=== PATIENT | female | born 1965 | race Caucasian/White ===

== ENCOUNTER → 2018-04-30 | Outpatient (CLI) | payer OTHER ==
--- NOTE | 2018-04-30 10:44 | CT ---
EXAMINATION TYPE: CT facial bones w con DATE OF EXAM: 04/30/2018 COMPARISON: NONE HISTORY: Osteomyelitis CT DLP: 847 mGycm CONTRAST: 100 mL of Isovue 300 The paranasal sinuses are examined in the axial plane at 2 mm thick sections. Reconstructed images i n the coronal plane were obtained. There is dental amalgam scatter artifact. The maxillary sinuses are clear. The ethmoid air cells are clear. The sphenoid sinuses are clear. The frontal sinuses are clear. The septum is evaluated. There is septal deviation to the right. The ostiomeatal units are patent. There are prior uncinectomies and ethmoidectomies. The maxillary spine is intact. Osseous structures appear intact. No cortical erosion to suggest acute osteomyelitis is evident. No suspicious enhancement is evident. No abscess is identified. IMPRESSIONS: 1. No suspicious osseous erosions to suggest osteomyelitis is identified. 2. Postsurgical changes within the uncinate processes and ethmoid air cells.
== END | disposition home or self-care (01) ==
LOC: RADCTMAIN 07:35
PROVIDERS: ATTEND Family Medicine
DX: M86.9 Osteomyelitis, unspecified (principal); Z98.890 Other specified postprocedural states
CPT/HCPCS: 70487; Q9967

== ENCOUNTER → 2018-05-12 | Outpatient (CLI) | payer OTHER ==
--- NOTE | 2018-05-12 17:27 | NM ---
EXAMINATION TYPE: NM bone 3 phase DATE OF EXAM: 05/12/2018 COMPARISON: CT facial bones 04/30/2018 HISTORY: 53-year-old female osteomyelitis of the sinuses, sinus/cheek bone swelling, molar pulled 14 months ago. Technique: Triple phase bone scintigraphy was performed following the injection of 23.9 mCi Tc 99m MD P. Immediate images and 3.5 hours post injection images acquired. Imaging performed over the head an d neck. FINDINGS: Flow images show no significant hyperemia compared from side to side. Pool images show relatively symmetrical appearance. Delayed images show focal increased uptake along the right maxilla. IMPRESSION: Focal increased uptake only on the delayed images within the right maxilla suggests periodontal disea se. No corresponding increased flow or pool activity here. No convincing findings of osteomyelitis as , generally, increased uptake on all 3 phases would suggest osteomyelitis.
== END | disposition home or self-care (01) ==
LOC: RADNMMAIN 07:13
PROVIDERS: ATTEND Internal Medicine Infectious Disease
DX: R93.7 Abnormal findings on diagnostic imaging of other parts of musculoskeletal system (principal); M86.8X8 Other osteomyelitis, other site
CPT/HCPCS: 78315; A9503

== ENCOUNTER → 2018-09-02 | Outpatient (CLI) | payer OTHER ==
--- NOTE | 2018-09-02 23:33 | CT ---
EXAMINATION TYPE: CT abdomen pelvis w con DATE OF EXAM: 09/02/2018 HISTORY: Umbilical hernia per order. CT DLP: 422.7mGycm Automated Exposure Control for Dose Reduction was Utilized. CONTRAST: CT scan of the abdomen and pelvis is performed without oral but with IV Contrast, patient injected wi th 100 mL of Isovue 300. COMPARISON: None FINDINGS: LUNG BASES: There is central left basilar linear scarring and/or atelectasis axial image 7. LIVER/GB: Cholecystectomy clips are noted. PANCREAS: No significant abnormality is seen. SPLEEN: No significant abnormality is seen. ADRENALS: No significant abnormality is seen. KIDNEYS: No significant abnormality is seen. BOWEL: Evaluation of bowel is slightly suboptimal secondary to lack of enteric contrast. There is no suspicious small or large bowel dilatation. Sutures are suspected along lateral margin of proximal si gmoid colon axial image 68, correlate clinically. Incidental normal-appearing appendix is seen from c ecum in the right pelvis. UTERUS/ADNEXA: Uterus is surgically absent or markedly atrophic. There are some scattered pelvic phle boliths. Neither ovary is identified and suspected surgically absent. LYMPH NODES: No greater than 1cm abdominal or pelvic lymph nodes are appreciated. OSSEOUS STRUCTURES: No significant abnormality is seen. OTHER: There are suspected tiny fat-containing umbilical hernia axial image 42. Superior to this just right of midline by roughly 3.0 cm coronal image 11 there is small hernia defect axial image 33 and 34 with 2.1 cm neck containing fat and tiny mesenteric vessels. Mild to moderate calcified plaque distal abdominal aorta is seen. IMPRESSION: Tiny fat-containing umbilical hernia. There is small ventral wall hernia larger than this superior and to the right of midline as detailed above.
== END | disposition home or self-care (01) ==
LOC: RADCTMAIN 17:35
PROVIDERS: ATTEND Surgery
DX: K42.9 Umbilical hernia without obstruction or gangrene (principal); K43.9 Ventral hernia without obstruction or gangrene
CPT/HCPCS: 74177; Q9967

== ENCOUNTER 2018-09-27 04:53 | Emergency (ER) | payer OTHER ==
[2018-09-27 06:20] LABS: Basophils % (A) 0 %; Eosinophils % (A) 0 %; HGB 13.6 gm/dL (11.4-16.0); Lymphocytes # (A) 1.6 k/uL (1.0-4.8); Lymphocytes % (A) 17 %; MCV 91.3 fL (80.0-100.0); Mean Platelet Volume 7.1; Monocytes # (A) 0.3 k/uL (0-1.0); Monocytes % (A) 3 %; Neutrophils # (A) 6.9 k/uL (1.3-7.7); Neutrophils % (A) 77 %; Platelet Count 316 k/uL (150-450); RBC 4.38 m/uL (3.80-5.40); RDW 12.7 % (11.5-15.5)
[2018-09-27 06:37] LABS: Anion Gap 9 mmol/L; Blood Urea Nitrogen 14 mg/dL (7-17); Calcium 10.3 mg/dL (8.4-10.2); Carbon Dioxide 27 mmol/L (22-30); Chloride 103 mmol/L (98-107); Glucose 126 mg/dL (74-99); Potassium 4.3 mmol/L (3.5-5.1); Sodium 139 mmol/L (137-145)
--- NOTE | 2018-09-27 07:02 | ED ---
ENT HPI - General Chief complaint: Dental/Oral Stated complaint: infection Time Seen by Provider: 09/27/18 05:09 Source: patient Mode of arrival: ambulatory Limitations: no limitations - History of Present Illness Initial comments: This patient is 53-year-old woman who presents with a concern that she is not able to tolerate the antibiotics that she was prescribed for dental infection. The patient states that she had had all of her teeth extracted approximately 3 months ago. She was prescribed amoxicillin, but believes she continued to have dental infection. She states that there have been tenderness to the maxillary area, left greater than right and that this had continued for months. She states that she also had been having some drainage. She did complete multiple courses of amoxicillin without having much relief. She was seen recently by dentist and Layne Winters who prescribed her Cipro and metronidazole, and states that she believes that these were helping but that the medication was causing some stomach upset she could not continue to take them. MD complaint: other Onset/Timin -: month(s) Severity: mild Quality: burning Consistency: constant Improves with: none Worsens with: medication Context- Dental: history of dental caries Associated Symptoms: gum swelling - Related Data Home Medications Medication Instructions Recorded Confirmed Losartan [Cozaar] 50 mg PO DAILY 05/04/18 09/27/18 Atorvastatin [Lipitor] 20 mg PO DAILY 09/27/18 09/27/18 Sertraline [Zoloft] 50 mg PO DAILY 09/27/18 09/27/18 Previous Rx's Medication Instructions Recorded Famotidine [Pepcid] 20 mg PO BID #14 tablet 09/27/18 Ondansetron Odt [Zofran ODT] 4 mg PO Q8HR PRN #10 tab 09/27/18 Allergies Allergy/AdvReac Type Severity Reaction Status Date / Time No Known Allergies Allergy Verified 09/27/18 07:38 Review of Systems ROS Statement: Those systems with pertinent positive or pertinent negative responses have been documented in the HPI. ROS Other: All systems not noted in ROS Statement are negative. Constitutional: Denies: fever, chills Respiratory: Denies: cough, dyspnea Cardiovascular: Denies: chest pain, palpitations Gastrointestinal: Denies: abdominal pain, nausea, vomiting Skin: Denies: rash Neurological: Denies: headache, weakness Past Medical History Past Medical History: Hyperlipidemia, Hypertension History of Any Multi-Drug Resistant Organisms: None Reported Past Surgical History: Cholecystectomy, Hernia Repair, Hysterectomy Additional Past Surgical History / Comment(s): sinus surgery Past Anesthesia/Blood Transfusion Reactions: No Reported Reaction Past Psychological History: Anxiety Smoking Status: Current every day smoker Past Alcohol Use History: None Reported Past Drug Use History: None Reported - Past Family History Mother Family Medical History: Pneumonia Father History Unknown: Yes General Exam Limitations: no limitations General appearance: alert, in no apparent distress Head exam: Present: atraumatic, normocephalic Eye exam: Present: normal appearance. Absent: scleral icterus, conjunctival injection ENT exam: Present: mucous membranes moist, TM's normal bilaterally, normal external ear exam, other (Intervention less) Neck exam: Present: normal inspection, full ROM. Absent: meningismus, lymphadenopathy Respiratory exam: Present: normal lung sounds bilaterally. Absent: respiratory distress, wheezes, rales, rhonchi, stridor Cardiovascular Exam: Present: regular rate, normal rhythm, normal heart sounds. Absent: systolic murmur, diastolic murmur, rubs, gallop Skin exam: Present: warm, dry, intact, normal color. Absent: rash Course Vital Signs 09/27/18 04:57 Temperature 98.0 F Pulse Rate 119 H Respiratory 20 Rate Blood Pressure 152/84 O2 Sat by Pulse 97 Oximetry Medical Decision Making - Lab Data Result diagrams: 09/27/18 05:50 09/27/18 05:50 Lab Results 09/27/18 09/27/18 Range/Units 05:50 05:50 WBC 9.0 (3.8-10.6) k/uL RBC 4.38 (3.80-5.40) m/uL Hgb 13.6 (11.4-16.0) gm/dL Hct 40.0 (34.0-46.0) % MCV 91.3 (80.0-100.0) fL MCH 31.0 (25.0-35.0) pg MCHC 34.0 (31.0-37.0) g/dL RDW 12.7 (11.5-15.5) % Plt Count 316 (150-450) k/uL Neutrophils % 77 % Lymphocytes % 17 % Monocytes % 3 % Eosinophils % 0 % Basophils % 0 % Neutrophils # 6.9 (1.3-7.7) k/uL Lymphocytes # 1.6 (1.0-4.8) k/uL Monocytes # 0.3 (0-1.0) k/uL Eosinophils # 0.0 (0-0.7) k/uL Basophils # 0.0 (0-0.2) k/uL ESR 22 H (0-20) mm/hr Sodium 139 (137-145) mmol/L Potassium 4.3 (3.5-5.1) mmol/L Chloride 103 (98-107) mmol/L Carbon Dioxide 27 (22-30) mmol/L Anion Gap 9 mmol/L BUN 14 (7-17) mg/dL Creatinine 0.69 (0.52-1.04) mg/dL Est GFR (CKD-EPI)AfAm >90 (>60 ml/min/1.73 sqM) Est GFR (CKD-EPI)NonAf >90 (>60 ml/min/1.73 sqM) Glucose 126 H (74-99) mg/dL Calcium 10.3 H (8.4-10.2) mg/dL C-Reactive Protein <5.0 (<10.0) mg/L Disposition Clinical Impression: Gastritis Disposition: HOME SELF-CARE Condition: Good Instructions: Gastritis (ED) Prescriptions: Famotidine [Pepcid] 20 mg PO BID #14 tablet Ondansetron Odt [Zofran ODT] 4 mg PO Q8HR PRN #10 tab PRN Reason: Nausea Is patient prescribed a controlled substance at d/c from ED?: No Referrals: Nonstaff,Physician [Primary Care Provider] - 1-2 days
[2018-09-27 07:12] LABS: C Reactive Protein <5.0 mg/L (<10.0)
[2018-09-27 07:29] LABS: Erythrocyte Sedimentation Rate 22 mm/hr (0-20)
[2018-09-27] MEDS ORDERED: ONDANSETRON ODT 4 MG TAB PO STA (07:47)
[2018-09-27] MEDS ORDERED: FAMOTIDINE 20 MG TAB PO STA (07:47)
[2018-09-27 08:13] VITALS: BP 142/80; PULSE 80; RESP 18; TEMP 97.9
== END 2018-09-27 08:10 | disposition home or self-care (01) ==
LOC: EC 04:53
DX: K29.70 Gastritis, unspecified, without bleeding (principal); E78.5 Hyperlipidemia, unspecified; F41.9 Anxiety disorder, unspecified; F17.200 Nicotine dependence, unspecified, uncomplicated; Z79.899 Other long term (current) drug therapy
CPT/HCPCS: 36415; 80048; 85025; 85652; 86140; 99283

== ENCOUNTER 2018-10-28 13:41 | Emergency (ER) | payer OTHER ==
[2018-10-28 13:55] VITALS: TEMP 98.5
[2018-10-28 15:14] LABS: Basophils % (A) 0 %; Eosinophils # (A) 0.1 k/uL (0-0.7); Eosinophils % (A) 2 %; HGB 12.4 gm/dL (11.4-16.0); Lymphocytes # (A) 2.6 k/uL (1.0-4.8); Lymphocytes % (A) 29 %; MCH 30.1 pg (25.0-35.0); MCHC 32.7 g/dL (31.0-37.0); Mean Platelet Volume 6.9; Monocytes # (A) 0.6 k/uL (0-1.0); Monocytes % (A) 6 %; Neutrophils # (A) 5.4 k/uL (1.3-7.7); Neutrophils % (A) 61 %; Platelet Count 274 k/uL (150-450); RBC 4.13 m/uL (3.80-5.40); RDW 12.7 % (11.5-15.5); WBC 8.9 k/uL (3.8-10.6)
[2018-10-28 15:21] LABS: ALT 25 U/L (9-52); AST 37 U/L (14-36); Albumin 4.3 g/dL (3.5-5.0); Alkaline Phosphatase 42 U/L (38-126); Anion Gap 10 mmol/L; Blood Urea Nitrogen 16 mg/dL (7-17); Calcium 9.8 mg/dL (8.4-10.2); Carbon Dioxide 26 mmol/L (22-30); Chloride 105 mmol/L (98-107); Glucose 102 mg/dL (74-99); Potassium 4.8 mmol/L (3.5-5.1); Sodium 141 mmol/L (137-145); Total Bilirubin 0.8 mg/dL (0.2-1.3); Total Protein 7.5 g/dL (6.3-8.2)
[2018-10-28 15:40] VITALS: BP 118/85; PULSE 82; RESP 18
--- NOTE | 2018-10-28 16:16 | ED ---
General Adult HPI - General Chief complaint: Headache Stated complaint: Facial infection Source: patient, RN notes reviewed, old records reviewed Mode of arrival: ambulatory Limitations: no limitations - History of Present Illness Initial comments: 33-year-old female patient past history including long history of anxiety, tooth removal one year ago, sinus surgery 6 weeks ago secondary to maxillary Sinus drainage. Patient presents in ED with approximately one year long complaints of continued sinus drainage in her mouth which is clear. Waxing and waning headache on her left temporal lobe which she has experienced for greater than a year, comes and goes, no visual symptoms, no changes in vision, does not take anything for pain, no recent falls, no history of bleeding. Patient has been evaluated multiple times for these symptoms. Patient states that she had a sinus CT, brain CT by her primary care provider presently 10 days ago for these symptoms, states that these imaging modalities were normal. Patient was evaluated by the surgeon who performed the surgery Dr. Dalton Kumar out of the [facility] approximately 2 weeks ago. The symptoms, saturation patient at this time. Patient has another follow-up appointment with the surgeon in 5 days. Patient additionally complains of some chills which she experienced is here today, patient is also currently symptoms for longer than one year. Patient denies all other complaints. Systemic: Pt denies fatigue, myalgia, fever, rash. Pt denies weakness, night sweats, weight loss. Neuro: Pt denies visual disturbances, syncope or pre-syncope. HEENT: Pt denies ocular discharge or irritation, otalgia, rhinorrhea, pharyngitis or notable lymphadenopathy. Cardiopulmonary: Pt denies chest pain, SOB, heart palpitations, dyspnea on exertion. Abdominal/GI: Pt denies abdominal pain, n/v/d. : Pt denies dysuria, burning w/ urination, frequency/urgency. Denies new onset urinary or bowel incontinence. MSK: Pt denies myalgia, loss of strength or function in extremities. Neuro: Pt denies new onset weakness, paresthesias. - Related Data Home Medications Medication Instructions Recorded Confirmed Losartan [Cozaar] 50 mg PO DAILY 05/04/18 10/28/18 Atorvastatin [Lipitor] 20 mg PO DAILY 09/27/18 10/28/18 FLUoxetine HCL [PROzac] 40 mg PO DAILY 10/28/18 10/28/18 clonazePAM [KlonoPIN] 0.5 mg PO BID 10/28/18 10/28/18 Allergies Allergy/AdvReac Type Severity Reaction Status Date / Time No Known Allergies Allergy Verified 10/30/18 09:47 Review of Systems ROS Statement: Those systems with pertinent positive or pertinent negative responses have been documented in the HPI. ROS Other: All systems not noted in ROS Statement are negative. Past Medical History Past Medical History: Hyperlipidemia, Hypertension History of Any Multi-Drug Resistant Organisms: None Reported Past Surgical History: Cholecystectomy, Hernia Repair, Hysterectomy Additional Past Surgical History / Comment(s): sinus surgery Past Anesthesia/Blood Transfusion Reactions: No Reported Reaction Past Psychological History: Anxiety Smoking Status: Current every day smoker Past Alcohol Use History: None Reported Past Drug Use History: None Reported - Past Family History Mother Family Medical History: Pneumonia Father History Unknown: Yes General Exam - General Exam Comments Initial Comments: Constitutional: NAD, AOX3, Pt has pleasant affect. HEENT: NC/AT, trachea midline, neck supple, no lymphadenopathy. Posterior pharynx non erythematous, without exudates. External ears appear normal, without discharge. Mucous membranes moist. Eyes PERRLA, EOM intact. There is no scleral icterus. No pallor noted. No tenderness to maxillary, ethmoid, frontal sinus. Dentition exam did not reveal any infection, discharge, edema, abscess. Cardiopulmonary: RRR, no murmurs, rubs or gallops, no JVD noted. Lungs CTAB in anterior and posterior simmons. No peripheral edema. Abdominal exam: Abdomen soft and non-distended. Abdomen non-tender to palpation in all 4 quadrants. Bowel sounds active in LLQ. No hepatosplenomegaly. Neuro: CN II-XII intact. No nuchal rigidity. Neuro exam within normal limits. MSK: No posterior calf tenderness bilaterally, homans sign negative bilaterally. Posterior tibialis and radial pulse +2 bilaterally. Patient has full active range of motion in upper and lower extremities. Patient ambulatory. Limitations: no limitations Course Vital Signs 10/28/18 10/28/18 13:52 15:37 Temperature 98.5 F Pulse Rate 109 H 82 Respiratory 16 18 Rate Blood Pressure 117/83 118/85 O2 Sat by Pulse 100 98 Oximetry Medical Decision Making - Medical Decision Making 53-year-old female patient with long history of sinus complaints since ED with approximately one year drainage, one year of waxing and waning headache. Patient has been evaluated multiple times disease, recently had a facial CT and brain CT by her primary care physician, which patient states was normal. Patient had surgery in her maxillary sinus proximal 6 weeks ago by a surgeon based out of [place], patient is a following up that surgeon regularly most recently 2 weeks ago, patient has appointment again in 5 days. A long discussion patient about imaging modalities. Patient decided that she would like to decline on a facial and brain CT today due to the burden of radiation, previous study done recently. Patient has CBC and CMP conducted today is did not reveal any gross pathology. Patient vital signs are stable, patient had mild tachycardia upon initial set of vitals, however during reevaluation patient heart rate was 80, second set of vitals were all within normal limits. Strict return precautions were discussed with patient including fever chills, nausea vomiting diarrhea, chest pain, shortness of breath, abdominal pain, changing drainage, worsening drainage, worsening headache, thunderclap headache , change in vision, photophobia, any other new symptoms. Patient to follow-up with her primary care physician in one to 2 days. Patient to keep her follow- up appointment with the surgeon who performed the surgery on her maxillary sinus. Case discussed with Dr. Claudio. - Lab Data Result diagrams: 10/28/18 14:52 10/28/18 14:52 Lab Results 10/28/18 10/28/18 Range/Units 14:52 14:52 WBC 8.9 (3.8-10.6) k/uL RBC 4.13 (3.80-5.40) m/uL Hgb 12.4 (11.4-16.0) gm/dL Hct 38.0 (34.0-46.0) % MCV 92.0 (80.0-100.0) fL MCH 30.1 (25.0-35.0) pg MCHC 32.7 (31.0-37.0) g/dL RDW 12.7 (11.5-15.5) % Plt Count 274 (150-450) k/uL Neutrophils % 61 % Lymphocytes % 29 % Monocytes % 6 % Eosinophils % 2 % Basophils % 0 % Neutrophils # 5.4 (1.3-7.7) k/uL Lymphocytes # 2.6 (1.0-4.8) k/uL Monocytes # 0.6 (0-1.0) k/uL Eosinophils # 0.1 (0-0.7) k/uL Basophils # 0.0 (0-0.2) k/uL Sodium 141 (137-145) mmol/L Potassium 4.8 (3.5-5.1) mmol/L Chloride 105 (98-107) mmol/L Carbon Dioxide 26 (22-30) mmol/L Anion Gap 10 mmol/L BUN 16 (7-17) mg/dL Creatinine 0.75 (0.52-1.04) mg/dL Est GFR (CKD-EPI)AfAm >90 (>60 ml/min/1.73 sqM) Est GFR (CKD-EPI)NonAf >90 (>60 ml/min/1.73 sqM) Glucose 102 H (74-99) mg/dL Calcium 9.8 (8.4-10.2) mg/dL Total Bilirubin 0.8 (0.2-1.3) mg/dL AST 37 H (14-36) U/L ALT 25 (9-52) U/L Alkaline Phosphatase 42 (38-126) U/L Total Protein 7.5 (6.3-8.2) g/dL Albumin 4.3 (3.5-5.0) g/dL Disposition Clinical Impression: Sinus drainage Disposition: HOME SELF-CARE Condition: Good Instructions: Postnasal Drip (DC) Additional Instructions: Patient to adhere to previously discussed treatment plan and will take medication(s) as directed. Patient to follow up with PCP in 1-2 days. Patient to return to ED if symptoms do not improve. Is patient prescribed a controlled substance at d/c from ED?: No Referrals: Rob Shine DO [Primary Care Provider] - 1-2 days Time of Disposition: 16:16
== END 2018-10-28 16:25 | disposition home or self-care (01) ==
LOC: EC 13:41
DX: J34.89 Other specified disorders of nose and nasal sinuses (principal); R51 Headache; R68.83 Chills (without fever); R00.0 Tachycardia, unspecified; E78.5 Hyperlipidemia, unspecified; I10 Essential (primary) hypertension; F41.9 Anxiety disorder, unspecified; F17.200 Nicotine dependence, unspecified, uncomplicated; Z79.899 Other long term (current) drug therapy; Z53.29 Procedure and treatment not carried out because of patient's decision for other reasons
CPT/HCPCS: 36415; 80053; 85025; 99284

== ENCOUNTER 2018-10-30 09:40 | Emergency (ER) | payer OTHER ==
[2018-10-30] MEDS ORDERED: SODIUM CHLORIDE 0.9% 1,000 ML IV STA ×2 (11:03)
[2018-10-30] MEDS ORDERED: AMPICILLIN-SULBACTAM 3 GM in SODIUM CHLORIDE 0.9% 100 ML IVPB STA (11:03)
[2018-10-30 12:08] LABS: Basophils % (A) 0 %; Eosinophils # (A) 0.1 k/uL (0-0.7); Eosinophils % (A) 1 %; HCT 39.6 % (34.0-46.0); HGB 12.8 gm/dL (11.4-16.0); Lymphocytes # (A) 2.7 k/uL (1.0-4.8); Lymphocytes % (A) 29 %; MCH 30.5 pg (25.0-35.0); MCHC 32.3 g/dL (31.0-37.0); MCV 94.3 fL (80.0-100.0); Mean Platelet Volume 6.9; Monocytes # (A) 0.5 k/uL (0-1.0); Monocytes % (A) 5 %; Neutrophils # (A) 5.9 k/uL (1.3-7.7); Neutrophils % (A) 62 %; Platelet Count 296 k/uL (150-450); RBC 4.21 m/uL (3.80-5.40); RDW 12.7 % (11.5-15.5); WBC 9.4 k/uL (3.8-10.6)
--- NOTE | 2018-10-30 12:10 | ED ---
Recheck HPI - General Chief Complaint: Recheck/Abnormal Lab/Rx Stated Complaint: Infection/head area Time Seen by Provider: 10/30/18 10:47 Source: patient, RN notes reviewed, old records reviewed Mode of arrival: ambulatory Limitations: no limitations - History of Present Illness Initial Comments: This is a 53-year-old female the ER for evaluation. She presents today for evaluation regards to sinus drainage. 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 Denies fever but she feels like she does have active infection. Patient was seen in emergency room 2 days ago for similar complaint. Patient denies any other medical issues she states she does have occasional chills MD Complaint: other (Postop follow-up) -: days(s) (5) Initial Visit For: other (Postop follow-up) Returns Today for: persistent/worsening pain related to initial visit Symptoms Since Prior Visit: no new symptoms Associated Symptoms: fever, chills Treatments Prior to Arrival: other (follow-up after surgery) - Related Data Home Medications Medication Instructions Recorded Confirmed Losartan [Cozaar] 50 mg PO DAILY 05/04/18 10/30/18 Atorvastatin [Lipitor] 20 mg PO DAILY 09/27/18 10/30/18 FLUoxetine HCL [PROzac] 40 mg PO DAILY 10/28/18 10/30/18 ALPRAZolam [Xanax] 0.5 mg PO BID 10/30/18 10/30/18 Allergies Allergy/AdvReac Type Severity Reaction Status Date / Time No Known Allergies Allergy Verified 10/30/18 13:15 Review of Systems ROS Statement: Those systems with pertinent positive or pertinent negative responses have been documented in the HPI. ROS Other: All systems not noted in ROS Statement are negative. Past Medical History Past Medical History: Hyperlipidemia, Hypertension History of Any Multi-Drug Resistant Organisms: None Reported Past Surgical History: Cholecystectomy, Hernia Repair, Hysterectomy Additional Past Surgical History / Comment(s): sinus surgery Past Anesthesia/Blood Transfusion Reactions: No Reported Reaction Past Psychological History: Anxiety Smoking Status: Current every day smoker Past Alcohol Use History: None Reported Past Drug Use History: None Reported - Past Family History Mother Family Medical History: Pneumonia Father History Unknown: Yes General Exam Limitations: no limitations General appearance: alert, in no apparent distress Head exam: Present: atraumatic, normocephalic, normal inspection Eye exam: Present: normal appearance, PERRL, EOMI. Absent: scleral icterus, conjunctival injection, periorbital swelling ENT exam: Present: normal exam, mucous membranes moist Neck exam: Present: normal inspection. Absent: tenderness, meningismus, lymphadenopathy Respiratory exam: Present: normal lung sounds bilaterally. Absent: respiratory distress, wheezes, rales, rhonchi, stridor Cardiovascular Exam: Present: regular rate, normal rhythm, normal heart sounds. Absent: systolic murmur, diastolic murmur, rubs, gallop, clicks GI/Abdominal exam: Present: soft, normal bowel sounds. Absent: distended, tenderness, guarding, rebound, rigid Extremities exam: Present: normal inspection, full ROM, normal capillary refill. Absent: tenderness, pedal edema, joint swelling, calf tenderness Back exam: Present: normal inspection Neurological exam: Present: alert, oriented X3, CN II-XII intact Psychiatric exam: Present: normal affect, normal mood Skin exam: Present: warm, dry, intact, normal color. Absent: rash Course Vital Signs 10/30/18 10/30/18 10/30/18 09:47 11:35 11:40 Temperature 98.4 F Pulse Rate 99 Respiratory 18 Rate Blood Pressure 123/79 130/83 130/83 O2 Sat by Pulse 100 Oximetry 10/30/18 10/30/18 10/30/18 11:41 11:50 12:00 Temperature Pulse Rate 93 89 Respiratory 18 18 Rate Blood Pressure 139/87 142/91 142/91 O2 Sat by Pulse 100 99 Oximetry 10/30/18 10/30/18 10/30/18 12:10 12:20 12:30 Temperature Pulse Rate 85 94 Respiratory 16 12 Rate Blood Pressure 137/83 137/87 137/87 O2 Sat by Pulse 100 100 Oximetry 10/30/18 12:40 Temperature Pulse Rate 98 Respiratory 12 Rate Blood Pressure 125/77 O2 Sat by Pulse 99 Oximetry - Reevaluation(s) Reevaluation #1: 10/30/18 12:32 Medical record is reviewed Reevaluation #2: 10/30/18 12:32 Patient had surgery at [facility] for sinusitis, no significant physical exam findings. Reevaluation #3: 10/30/18 13:32 Did speak with patient's surgeon who is okay for discharge and follow-up as an outpatient Medical Decision Making - Medical Decision Making 53 female the ER with change drainage after sinus surgery. Patient has no fevers, no severe headaches. CT negative labwork normal patient will be discharged home - Lab Data Result diagrams: 10/30/18 11:20 10/30/18 11:20 Lab Results 10/30/18 10/30/18 10/30/18 Range/Units 11:20 11:20 11:20 WBC 9.4 (3.8-10.6) k/uL RBC 4.21 (3.80-5.40) m/uL Hgb 12.8 (11.4-16.0) gm/dL Hct 39.6 (34.0-46.0) % MCV 94.3 (80.0-100.0) fL MCH 30.5 (25.0-35.0) pg MCHC 32.3 (31.0-37.0) g/dL RDW 12.7 (11.5-15.5) % Plt Count 296 (150-450) k/uL Neutrophils % 62 % Lymphocytes % 29 % Monocytes % 5 % Eosinophils % 1 % Basophils % 0 % Neutrophils # 5.9 (1.3-7.7) k/uL Lymphocytes # 2.7 (1.0-4.8) k/uL Monocytes # 0.5 (0-1.0) k/uL Eosinophils # 0.1 (0-0.7) k/uL Basophils # 0.0 (0-0.2) k/uL Sodium 141 (137-145) mmol/L Potassium 4.0 (3.5-5.1) mmol/L Chloride 104 (98-107) mmol/L Carbon Dioxide 27 (22-30) mmol/L Anion Gap 10 mmol/L BUN 19 H (7-17) mg/dL Creatinine 0.75 (0.52-1.04) mg/dL Est GFR (CKD-EPI)AfAm >90 (>60 ml/min/1.73 sqM) Est GFR (CKD-EPI)NonAf >90 (>60 ml/min/1.73 sqM) Glucose 105 H (74-99) mg/dL Calcium 10.3 H (8.4-10.2) mg/dL Phosphorus 4.5 (2.5-4.5) mg/dL Magnesium 1.7 (1.6-2.3) mg/dL Total Bilirubin 0.5 (0.2-1.3) mg/dL AST 23 (14-36) U/L ALT 25 (9-52) U/L Alkaline Phosphatase 54 (38-126) U/L Total Creatine Kinase 39 (30-135) U/L CK-MB (CK-2) <0.2 (0.0-2.4) ng/mL CK-MB (CK-2) Rel Index Total Protein 8.1 (6.3-8.2) g/dL Albumin 4.7 (3.5-5.0) g/dL - EKG Data -: EKG Interpreted by Me (EKG shows normal sinus rhythm rate of 82, [place] 150, QRS 80, QTC 446) - Radiology Data Radiology results: report reviewed (CT facial bones negative for acute disease, significant postsurgical change), image reviewed Disposition Clinical Impression: Sinus drainage, Post-operative pain Disposition: HOME SELF-CARE Condition: Good Is patient prescribed a controlled substance at d/c from ED?: No Referrals: Rob Shine DO [Primary Care Provider] - 1-2 days
[2018-10-30 12:20] LABS: ALT 25 U/L (9-52); AST 23 U/L (14-36); Albumin 4.7 g/dL (3.5-5.0); Alkaline Phosphatase 54 U/L (38-126); Anion Gap 10 mmol/L; Blood Urea Nitrogen 19 mg/dL (7-17); Calcium 10.3 mg/dL (8.4-10.2); Carbon Dioxide 27 mmol/L (22-30); Chloride 104 mmol/L (98-107); Glucose 105 mg/dL (74-99); Magnesium 1.7 mg/dL (1.6-2.3); Phosphorus 4.5 mg/dL (2.5-4.5); Sodium 141 mmol/L (137-145); Total Bilirubin 0.5 mg/dL (0.2-1.3); Total Protein 8.1 g/dL (6.3-8.2)
[2018-10-30 12:35] LABS: Creatine Kinase 39 U/L (30-135)
[2018-10-30 12:45] LABS: Creatine Kinase MB <0.2 ng/mL (0.0-2.4)
--- NOTE | 2018-10-30 13:13 | CT ---
EXAMINATION TYPE: CT facial bones wo con DATE OF EXAM: 10/30/2018 COMPARISON: Previous study dated 04/30/2018. HISTORY: Recent surgery to hole in sinus on the Lt, c/o dull pain and drainage CT DLP: 407.9 mGycm Automated exposure control for dose reduction was used. TECHNIQUE: CT scan of the sinuses is performed without contrast, axial images are obtained, coronal r eformatted images are also reviewed. FINDINGS: There have been previous bilateral James-Tony procedures. There is been partial ethmoidec tomies and the wall of the anterior wall of the right sphenoid sinus is absent. There is no significa nt mucosal thickening at this time. The major salivary glands are unremarkable. The parapharyngeal soft tissues are normal. IMPRESSION: 1. EXTENSIVE POSTSURGICAL CHANGE. 2. NO SIGNIFICANT MUCOSAL DISEASE IS PRESENT AT THIS TIME AND ANY OF THE SINUSES.
[2018-10-30 13:41] VITALS: PULSE 89
[2018-10-30 14:16] VITALS: BP 127/80; RESP 18; TEMP 98.2
--- NOTE | 2018-10-30 14:38 | XR ---
EXAMINATION TYPE: XR chest 1V portable DATE OF EXAM: 10/30/2018 COMPARISON: NONE HISTORY: Pain TECHNIQUE: Single frontal view of the chest is obtained. FINDINGS: There is no focal air space opacity, pleural effusion, or pneumothorax seen. The cardiac silhouette size is within normal limits. The osseous structures are intact. There are overlying cardiac leads. Patient is rotated. IMPRESSION: No acute process.
== END 2018-10-30 15:14 | disposition home or self-care (01) ==
LOC: EC 09:40
DX: G89.18 Other acute postprocedural pain (principal); J34.89 Other specified disorders of nose and nasal sinuses; R11.0 Nausea; R50.9 Fever, unspecified; E78.5 Hyperlipidemia, unspecified; I10 Essential (primary) hypertension; F41.9 Anxiety disorder, unspecified; F17.200 Nicotine dependence, unspecified, uncomplicated; Z79.899 Other long term (current) drug therapy
CPT/HCPCS: 36415; 93005; 80053; 82550; 82553; 83735; 84100; 85025; 87040; 71045; 70486; 99284; 96365; 96361 ×3; J0295

== ENCOUNTER 2018-11-24 02:56 | Emergency (ER) | payer OTHER ==
[2018-11-24 03:02] VITALS: TEMP 98.7
[2018-11-24 03:35] LABS: Amorphous Sediment,Urine Rare /hpf; Appearance,Urine Clear (Clear); Bilirubin,Urine Negative (Negative); Blood,Urine Small (Negative); Color,Urine Light Yellow; Glucose,Urine (UA) Negative (Negative); Ketones,Urine Negative (Negative); Leukocyte Esterase,Urine Negative (Negative); Mucus,Urine Rare /hpf; Nitrite,Urine Negative (Negative); Protein,Urine Negative (Negative); RBC,Urine 5 /hpf (0-5); Specific Gravity,Urine 1.011 (1.001-1.035); Squamous Epithelial Cell,Urine <1 /hpf (0-4); Urobilinogen,Urine <2.0 mg/dL (<2.0); WBC,Urine <1 /hpf (0-5)
[2018-11-24 03:39] LABS: ALT 23 U/L (9-52); AST 16 U/L (14-36); Albumin 4.7 g/dL (3.5-5.0); Alkaline Phosphatase 51 U/L (38-126); Amylase 45 U/L (30-110); Anion Gap 10 mmol/L; Blood Urea Nitrogen 17 mg/dL (7-17); Calcium 10.1 mg/dL (8.4-10.2); Carbon Dioxide 28 mmol/L (22-30); Chloride 103 mmol/L (98-107); Glucose 137 mg/dL (74-99); Lipase 84 U/L (23-300); Potassium 3.9 mmol/L (3.5-5.1); Sodium 141 mmol/L (137-145); Total Bilirubin 0.4 mg/dL (0.2-1.3); Total Protein 7.9 g/dL (6.3-8.2)
[2018-11-24 03:45] LABS: Basophils % (A) 1 %; Eosinophils # (A) 0.2 k/uL (0-0.7); Eosinophils % (A) 2 %; HCT 40.3 % (34.0-46.0); HGB 13.2 gm/dL (11.4-16.0); Lymphocytes # (A) 2.1 k/uL (1.0-4.8); Lymphocytes % (A) 29 %; MCH 30.2 pg (25.0-35.0); MCHC 32.9 g/dL (31.0-37.0); MCV 91.7 fL (80.0-100.0); Mean Platelet Volume 6.7; Monocytes # (A) 0.4 k/uL (0-1.0); Monocytes % (A) 6 %; Neutrophils # (A) 4.5 k/uL (1.3-7.7); Neutrophils % (A) 60 %; Platelet Count 330 k/uL (150-450); RBC 4.39 m/uL (3.80-5.40); RDW 12.7 % (11.5-15.5); WBC 7.4 k/uL (3.8-10.6)
--- NOTE | 2018-11-24 03:54 | ED ---
Abdominal Pain HPI <ErickTiti - Last Filed: 11/24/18 07:49> - General Source: patient, RN notes reviewed, old records reviewed Mode of arrival: ambulatory Limitations: no limitations <Jenny Nyily - Last Filed: 11/24/18 12:54> - General Chief Complaint: Abdominal Pain Stated Complaint: abd pain Time Seen by Provider: 11/24/18 03:16 - History of Present Illness Initial Comments: Patient is a 53-year-old female who presents returned today with complaints of burning abdominal pain. She reports she's been having symptoms such as this for the past 2 weeks. She complains of weight loss. Normal upon a day. Patient had hernia repair by Dr. Robles 3 weeks ago. She is concerned that her pain is related to her hernia repair. Patient states that she's been constipated, not having a bowel movement in 5 days. She is on Ultram. She is very anxious person and states that she blew some of her symptoms are related to anxiety. She reports that she has very little appetite. She is scheduled to see Dr. Robles tomorrow to have an upper endoscopy. (Lynnette Ny) - Related Data Home Medications Medication Instructions Recorded Confirmed Atorvastatin [Lipitor] 20 mg PO DAILY 09/27/18 11/24/18 ALPRAZolam [Xanax] 0.5 mg PO BID 10/30/18 11/24/18 DULoxetine HCL [Cymbalta] 30 mg PO DAILY 11/24/18 11/24/18 amLODIPine [Norvasc] 5 mg PO DAILY 11/24/18 11/24/18 Allergies Allergy/AdvReac Type Severity Reaction Status Date / Time No Known Allergies Allergy Verified 11/24/18 07:28 Review of Systems ROS Other: All systems not noted in ROS Statement are negative. <Titi Suarez - Last Filed: 11/24/18 07:49> ROS Other: All systems not noted in ROS Statement are negative. <Jenny Nyily - Last Filed: 11/24/18 12:54> ROS Statement: Those systems with pertinent positive or pertinent negative responses have been documented in the HPI. Past Medical History Past Medical History: Hyperlipidemia, Hypertension History of Any Multi-Drug Resistant Organisms: None Reported Past Surgical History: Cholecystectomy, Hernia Repair, Hysterectomy Additional Past Surgical History / Comment(s): sinus surgery Past Anesthesia/Blood Transfusion Reactions: No Reported Reaction Past Psychological History: Anxiety Smoking Status: Former smoker Past Alcohol Use History: None Reported Past Drug Use History: None Reported - Past Family History Mother Family Medical History: Pneumonia Father History Unknown: Yes <Lynnette Ny - Last Filed: 11/24/18 12:54> General Exam <Titi Suarez - Last Filed: 11/24/18 07:49> Limitations: no limitations <Lynnette Ny - Last Filed: 11/24/18 12:54> - General Exam Comments Initial Comments: Anxious 53-year-old female. Alert and oriented. Patient appears in no acute distress. General: Well appearing, well nourished, in no distress. Oriented x 3, normal mood and affect . Ambulating without difficulty. Skin: Good turgor, no rash, unusual bruising or prominent lesions Hair: Normal texture and distribution. HEENT: Head: Normocephalic, atraumatic, no visible or palpable masses, depressions, or scaring. Eyes: Visual acuity intact, conjunctiva clear, sclera non-icteric, EOM intact, PERRL. Ears: EACs clear, TMs translucent & cone of light visualized. hearing intact. Nose: No external lesions, mucosa non-inflamed, septum and turbinates normal Mouth: Mucous membranes moist, no mucosal lesions. Teeth/Gums: No obvious caries or periodontal disease. No gingival inflammation or significant resorption. Pharynx: Mucosa non-inflamed, no tonsillar hypertrophy or exudate Neck: Supple, without lesions, bruits, or adenopathy, thyroid non-enlarged and non-tender Heart: No cardiomegaly or thrills; regular rate and rhythm, no murmur or gallop Lungs: Clear to auscultation and percussion Abdomen: Bowel sounds normal, well-appearing incision sites from hernia. No erythema. Patient has epigastric tenderness, tenderness over her hernia repair. Back: Spine normal without deformity or tenderness, no CVA tenderness. Patient has a for similar bruise over the right thoracic area. Extremities: No amputations or deformities, cyanosis, edema or varicosities, peripheral pulses intact Musculoskeletal: Normal gait and station. No misalignment, asymmetry, crepitation, defects, tenderness, masses, effusions, decreased range of motion, instability, atrophy or abnormal strength or tone in the head, neck, spine, ribs , pelvis or extremities. Neurologic: CN 2-12 normal. Sensation to pain, touch, and proprioception normal. DTRs normal in upper and lower extremities. No pathologic reflexes. Psychiatric: Oriented X3, i Patient is anxious. (Lynnette Ny) Vital Signs 11/24/18 11/24/18 02:57 06:58 Temperature 98.7 F Pulse Rate 100 97 Respiratory 18 16 Rate Blood Pressure 138/91 114/95 O2 Sat by Pulse 100 100 Oximetry Medical Decision Making - Lab Data Result diagrams: 11/24/18 03:10 11/24/18 03:10 <Titi Suarez - Last Filed: 11/24/18 07:49> - Lab Data Result diagrams: 11/24/18 03:10 11/24/18 03:10 - Radiology Data Radiology results: report reviewed <Lynnette Ny - Last Filed: 11/24/18 12:54> - Medical Decision Making Very anxious 53-year-old female presents emergency department today with abdominal pain. She was related to her recent hernia repair. She claims a burning sensation over the area. Patient was given Ativan she appeared quite anxious. Started on IV fluids. CT abdomen and pelvis was completed. Her lab work was reviewed and unremarkable. Final disposition by Dr. Mojica. (Lynnette Ny) - Lab Data Lab Results 11/24/18 11/24/18 11/24/18 Range/Units 03:10 03:10 03:10 WBC 7.4 (3.8-10.6) k/uL RBC 4.39 (3.80-5.40) m/uL Hgb 13.2 (11.4-16.0) gm/dL Hct 40.3 (34.0-46.0) % MCV 91.7 (80.0-100.0) fL MCH 30.2 (25.0-35.0) pg MCHC 32.9 (31.0-37.0) g/dL RDW 12.7 (11.5-15.5) % Plt Count 330 (150-450) k/uL Neutrophils % 60 % Lymphocytes % 29 % Monocytes % 6 % Eosinophils % 2 % Basophils % 1 % Neutrophils # 4.5 (1.3-7.7) k/uL Lymphocytes # 2.1 (1.0-4.8) k/uL Monocytes # 0.4 (0-1.0) k/uL Eosinophils # 0.2 (0-0.7) k/uL Basophils # 0.0 (0-0.2) k/uL Sodium 141 (137-145) mmol/L Potassium 3.9 (3.5-5.1) mmol/L Chloride 103 (98-107) mmol/L Carbon Dioxide 28 (22-30) mmol/L Anion Gap 10 mmol/L BUN 17 (7-17) mg/dL Creatinine 0.73 (0.52-1.04) mg/dL Est GFR (CKD-EPI)AfAm >90 (>60 ml/min/1.73 sqM) Est GFR (CKD-EPI)NonAf >90 (>60 ml/min/1.73 sqM) Glucose 137 H (74-99) mg/dL Calcium 10.1 (8.4-10.2) mg/dL Total Bilirubin 0.4 (0.2-1.3) mg/dL AST 16 (14-36) U/L ALT 23 (9-52) U/L Alkaline Phosphatase 51 (38-126) U/L Total Protein 7.9 (6.3-8.2) g/dL Albumin 4.7 (3.5-5.0) g/dL Amylase 45 (30-110) U/L Lipase 84 (23-300) U/L Urine Color Light Yellow Urine Appearance Clear (Clear) Urine pH 7.0 (5.0-8.0) Ur Specific [place] 1.011 (1.001-1.035) Urine Protein Negative (Negative) Urine Glucose (UA) Negative (Negative) Urine Ketones Negative (Negative) Urine Blood Small H (Negative) Urine Nitrite Negative (Negative) Urine Bilirubin Negative (Negative) Urine Urobilinogen <2.0 (<2.0) mg/dL Ur Leukocyte Esterase Negative (Negative) Urine RBC 5 (0-5) /hpf Urine WBC <1 (0-5) /hpf Ur Squamous Epith Cells <1 (0-4) /hpf Amorphous Sediment Rare H (None) /hpf Urine Mucus Rare H (None) /hpf - Radiology Data No acute inflammatory or obstructive process is identified within abdomen or pelvis. Status post cholecystectomy and hysterectomy. Status post ventral abdominal wall hernia repair. Read by Dr. Ruiz. kUB shows normal bowel gas pattern. (Lynnette Ny) Disposition Is patient prescribed a controlled substance at d/c from ED?: No <Titi Suarez - Last Filed: 11/24/18 07:49> Time of Disposition: 12:54 <Lynnette Ny - Last Filed: 11/24/18 12:54> Clinical Impression: Abdominal pain Disposition: HOME SELF-CARE Condition: Good Instructions: Abdominal Pain (ED) Referrals: Rob Shine DO [Primary Care Provider] - 1-2 days Patrick Robles DO [Doctor of Osteopathic Medicine] - 1-2 days
[2018-11-24] MEDS ORDERED: LORazepam 2 MG/ML INJ IV STA (03:55)
--- NOTE | 2018-11-24 04:04 | XR ---
EXAMINATION TYPE: XR KUB DATE OF EXAM: 11/24/2018 COMPARISON: NONE HISTORY: Abdominal pain TECHNIQUE: 2 views upright FINDINGS: There is no sign of intestinal obstruction or pneumoperitoneum. Fecal pattern is normal. Th ere are clips from cholecystectomy. Lung bases are clear. There are no pathologic calcifications. IMPRESSION: Nonacute abdomen.
--- NOTE | 2018-11-24 05:41 | CT ---
EXAM: CT Abdomen and Pelvis With Intravenous Contrast. CLINICAL HISTORY: Reason: RUQ pain, hernia TECHNIQUE: Axial computed tomography images of the abdomen and pelvis with intravenous contrast. CTDI is 11.5 mGy and DLP is 497 mGy-cm. This CT exam was performed using one or more of the following dose reduction techniques: automated exposure control, adjustment of the mA and/or kV according to patient size, and/or use of iterative reconstruction technique. COMPARISON: 09/02/18. FINDINGS: Lower thorax: No acute findings. ABDOMEN: Liver: Unremarkable. No mass. Gallbladder and bile ducts: The gallbladder is surgically absent. Pancreas: Unremarkable. No ductal dilation. No mass. Spleen: Unremarkable. No splenomegaly. Adrenals: Unremarkable. No mass. Kidneys and ureters: Unremarkable. No hydronephrosis. No solid mass. PELVIS: Bladder: Unremarkable. No mass. Reproductive: Status post hysterectomy.. Appendix: No findings to suggest acute appendicitis. ABDOMEN + PELVIS: Stomach and bowel: Unremarkable. No obstruction. No mucosal thickening. Peritoneum: Unremarkable. No significant fluid collection. No free air. Postsurgical changes seen along the anterior abdominal wall consistent with prior hernia repair. Lymph nodes: Unremarkable. No enlarged lymph nodes. Vasculature: Unremarkable. No aortic aneurysm. Bones: No acute fracture. IMPRESSION: No acute inflammatory or obstructive process is identified within the abdomen or pelvis. Status post cholecystectomy and hysterectomy. Status post ventral abdominal wall hernia repair.
[2018-11-24 06:59] VITALS: BP 114/95; PULSE 97; RESP 16
== END 2018-11-24 08:00 | disposition home or self-care (01) ==
LOC: EC 02:56
DX: R10.9 Unspecified abdominal pain (principal); M79.81 Nontraumatic hematoma of soft tissue; R63.4 Abnormal weight loss; K59.00 Constipation, unspecified; R63.8 Other symptoms and signs concerning food and fluid intake; E78.5 Hyperlipidemia, unspecified; I10 Essential (primary) hypertension; F41.9 Anxiety disorder, unspecified; Z87.891 Personal history of nicotine dependence; Z79.899 Other long term (current) drug therapy; Z90.49 Acquired absence of other specified parts of digestive tract; Z90.710 Acquired absence of both cervix and uterus; Z98.890 Other specified postprocedural states
CPT/HCPCS: 36415; 80053; 82150; 83690; 85025; 81001; 74018; 74177; 99285; 96374; J2060; Q9967

== ENCOUNTER → 2018-12-08 | Outpatient (CLI) | payer OTHER ==
--- NOTE | 2018-12-08 14:50 | MR ---
MR brain without contrast HISTORY: Headache Multiplanar multisequence imaging through the brain. No comparisons There is no restricted diffusion. There is no hemorrhage or hydrocephalus. Scattered hyperintensities are present and inversion recovery T2-weighted sequences within the periventricular, subcortical whi te matter, approximately 3-5 lesions, the largest in the left parietal lobe measures approximately 6 to 7 mm, axial image 20. There are normal vascular flow voids. Corpus callosum, pituitary, cervical m edullary junction, cerebellopontine angles are normal. The orbits show symmetric appearance. Focal hy perintensity on T2 and inversion recovery sequence within the superior aspect of the nasal passages m easures approximately 8 x 7 x 7 mm and may represent small polyp. IMPRESSION: Nonspecific white matter demyelination could be related to hypertension, migraine headach es, vasculitis, multiple sclerosis felt to be less likely. Additional findings above.
== END | disposition home or self-care (01) ==
LOC: RADMRIMAIN 12:32
PROVIDERS: ATTEND Family Medicine
DX: R90.82 White matter disease, unspecified (principal); G44.001 Cluster headache syndrome, unspecified, intractable
CPT/HCPCS: 70551

== ENCOUNTER 2019-01-24 09:15 | Emergency (ER) | payer OTHER ==
[2019-01-24 09:21] VITALS: BP 151/90; RESP 18; TEMP 98.4
--- NOTE | 2019-01-24 09:44 | ED ---
General Adult HPI - General Chief complaint: Recheck/Abnormal Lab/Rx Stated complaint: Yeast infection Time Seen by Provider: 01/24/19 09:24 Source: patient, RN notes reviewed Mode of arrival: ambulatory Limitations: no limitations - History of Present Illness Initial comments: 53-year-old female presents emergency Department with chief complaint of he states infection. Patient states that she was told that she had a yeast infection has been on Diflucan 100 mg for last 12 days. She states is making her feel worse. Patient states that her doctor diagnosed her doctor with a nasal culture. Patient states this has been going on for several months but states that it's causing a skin rash and burning sensation. Patient states this is making her very anxious but denies any suicidal or homicidal. Patient denies being referred to any special this including dermatology rheumatology. Patient states that the Diflucan is not improving her symptoms. - Related Data Home Medications Medication Instructions Recorded Confirmed DULoxetine HCL [Cymbalta] 30 mg PO DAILY 11/24/18 11/24/18 amLODIPine [Norvasc] 5 mg PO DAILY 11/24/18 11/24/18 Ezetimibe [Zetia] 10 mg PO DAILY 01/24/19 01/24/19 clonazePAM 1 mg PO BID 01/24/19 01/24/19 Allergies Allergy/AdvReac Type Severity Reaction Status Date / Time No Known Allergies Allergy Verified 01/24/19 09:44 Review of Systems ROS Statement: Those systems with pertinent positive or pertinent negative responses have been documented in the HPI. ROS Other: All systems not noted in ROS Statement are negative. Past Medical History Past Medical History: Hyperlipidemia, Hypertension History of Any Multi-Drug Resistant Organisms: None Reported Past Surgical History: Cholecystectomy, Hernia Repair, Hysterectomy Additional Past Surgical History / Comment(s): sinus surgery Past Anesthesia/Blood Transfusion Reactions: No Reported Reaction Past Psychological History: Anxiety Smoking Status: Former smoker Past Alcohol Use History: None Reported Past Drug Use History: None Reported - Past Family History Mother Family Medical History: Pneumonia Father History Unknown: Yes General Exam Limitations: no limitations General appearance: alert, in no apparent distress, anxious Head exam: Present: atraumatic, normocephalic, normal inspection Eye exam: Present: normal appearance, PERRL, EOMI. Absent: scleral icterus, conjunctival injection, periorbital swelling ENT exam: Present: normal exam, normal oropharynx, mucous membranes moist Neck exam: Present: normal inspection. Absent: tenderness, meningismus, lymphadenopathy Respiratory exam: Present: normal lung sounds bilaterally. Absent: respiratory distress, wheezes, rales, rhonchi, stridor Cardiovascular Exam: Present: normal rhythm, tachycardia (Recheck heart rate on exam 105), normal heart sounds. Absent: systolic murmur, diastolic murmur, rubs , gallop, clicks GI/Abdominal exam: Present: soft, normal bowel sounds. Absent: distended, tenderness, guarding, rebound, rigid Skin exam: Present: warm, dry, intact, normal color, rash (Mild erythema rash noted in the perioral region, umbilical and lower back) Course Vital Signs 01/24/19 01/24/19 09:18 09:45 Temperature 98.4 F Pulse Rate 131 H 110 H Respiratory 18 18 Rate Blood Pressure 151/90 O2 Sat by Pulse 97 Oximetry Medical Decision Making - Medical Decision Making 53-year-old female presented for rash. I did a long discussion and reviewed prior imaging and workup. This is been an ongoing chronic issues. Patient is to be referred to a children's literature professor. Did explain that we can do labs but this most likely not change outcome. Patient offered imaging labs declined. Patient will follow-up dermatology and agrees this plan. Disposition Clinical Impression: Skin rash, Skin irritation Disposition: HOME SELF-CARE Condition: Stable Instructions (If sedation given, give patient instructions): Dermatitis (ED) Additional Instructions: Please return to the Emergency Department if symptoms worsen or any other concerns. Is patient prescribed a controlled substance at d/c from ED?: No Referrals: Rob Shine DO [Primary Care Provider] - 1-2 days Francine Gaona MD [STAFF PHYSICIAN] - 1-2 days Benny Balderas MD [STAFF PHYSICIAN] - 1-2 days Time of Disposition: 09:43
[2019-01-24 09:53] VITALS: PULSE 110
== END 2019-01-24 09:45 | disposition home or self-care (01) ==
LOC: EC 09:15
DX: R21 Rash and other nonspecific skin eruption (principal); I10 Essential (primary) hypertension; E78.5 Hyperlipidemia, unspecified; F41.9 Anxiety disorder, unspecified; Z79.899 Other long term (current) drug therapy; Z87.891 Personal history of nicotine dependence
CPT/HCPCS: 99283

== ENCOUNTER 2019-03-16 08:21 | Day surgery (SDC) | payer OTHER ==
[2019-03-14 13:34] VITALS: BMI 24.8
[~2019-03-16 08:21] MED LIST: LACTATED RINGERS 1,000 ML IV SCH
[2019-03-16] MEDS ORDERED: LIDOCAINE 1% 20 ML VIAL (10MG/ML) FOR IV START INTRADERMA ONE (08:56)
[2019-03-16 08:58] VITALS: TEMP 97.7
[2019-03-16] MEDS ORDERED: IV FLUID CONTINUATION 1,000 ML IV ONE (09:26)
[2019-03-16 09:38] VITALS: BP 121/81; PULSE 94; RESP 18
--- NOTE | 2019-03-16 11:41 | P.PCN ---
Date of Procedure: 03/16/19 Surgeon: Ney Bedoya Description of Procedure: Procedure=lumbar puncture . Preoperative diagnoses= multiple sclerosis Postoperative diagnosis= same Anesthesia= local lidocaine infiltration 1% 2 mL for skin and subcutaneous infiltration. Intravenous sedation: 2 mg of medazepam and 50 g of fentanyl Condition= stable. Complications=none. Indication for the procedure= this is a pleasant 53-year-old woman who was referred to our facility for a lumbar puncture by her neurologist to evaluate her for multiple sclerosis Procedure: Lumbar puncture Description of the procedure= patient in the procedure room sitting position and monitors applied, the back prepped with chlorhexidine, sterile technique, local infiltration of the skin and subcutaneous tissue with lidocaine 1% 5 mL, then 25-gauge quickie Needle advanced slowly at the L4 5 interlaminar space, the cerebrospinal fluid was clear, and no heme no paresthesia, a total of 12 mL of clear cerebrospinal fluid collected in 4 different tubes, the needle was removed, Band-Aid applied , patient tolerated the procedure well without any complications, and further management as per the patient's neurologist
[2019-03-16 12:00] LABS: Glucose,CSF 63 mg/dL (40-70); Total Protein,CSF 55 mg/dL (12-60)
[2019-03-16 12:14] LABS: T4, Free (Free Thyroxine) 0.96 ng/dL (0.78-2.19)
[2019-03-16 13:11] LABS: Appearance,CSF CLER; CSF Tube Number 4; CSF Tube Volume 2.1; Nucleated Cells, CSF 0 u/L (0-5); Red Blood Cell,CSF 0 u/L (0-10)
[2019-03-16 17:01] LABS: Rheumatoid Factor 7 IU/mL (0-15)
[2019-03-16 18:04] LABS: Anti-DNA, DS unit <1.0 IU/mL; DNA Double-Stranded NEGATIVE (NEGATIVE); RNP 0.5 AI
[2019-03-17 11:45] LABS: APTT 41 Sec(s) (<43); Dilute Russell Viper Venom 36 Sec(s) (<44)
[2019-03-17 14:31] LABS: IgG - CSF 3.1 mg/dL (0.0 - 3.4); IgG/Albumin Index (CSF) 0.56 (0.00 - 0.77)
[2019-03-18 09:16] LABS: Lyme IgG/IgM 0.13 Index
[2019-03-18 10:56] LABS: VDRL, Qualitative CSF Nonreactive (Nonreactive)
== END 2019-03-16 09:54 | disposition home or self-care (01) ==
LOC: ORPAIN 08:21
PROVIDERS: ATTEND Pain Medicine Pain Medicine
DX: G35 Multiple sclerosis (principal)
CPT/HCPCS: 87529; 86592; 86235 ×3; 84439; 88108; 84157; 82945; 82040; 82042; 82784; 83916; 83873; 84443; 84450; 84460; 85730; 86431; 85613; 89050; 86618; 86780; 86038; 86225; 87801; 62270; J2250; J3010; 99152

== ENCOUNTER → 2020-03-22 | Outpatient (CLI) | payer OTHER ==
--- NOTE | 2020-03-22 09:29 | CT ---
EXAMINATION TYPE: CT soft tissue neck w con DATE OF EXAM: 03/22/2020 HISTORY: Sialoadenitis. Left sided swelling marked by BB. COMPARISON: NONE CT DLP: 311.6 mGycm. Automated Exposure Control for Dose Reduction was Utilized. TECHNIQUE: CT scan of the neck is performed with IV Contrast, patient injected with 100 mL of Isovue M300, axial images are obtained, coronal and sagittal reformatted images are reviewed. FINDINGS: Airway: Occasional scattered subcentimeter nodules throughout the thyroid gland bilaterally. Parotid/submandibular glands: No gross abnormality seen. Carotid/Vascular Structures: No significant abnormality seen. Osseous Structures: Slight dextroconvex scoliotic curvature or positioning. Other: Metallic BB placed at level of palpable abnormality axial image 44 in the left neck superior a spect right thyroid lobe just below hyoid bone and above the vocal cords. No suspicious solid or cyst ic mass or fluid collection at this level. Small patent superficial vessel at this level is noted. Th is is below the inferior margin of the left submandibular gland at roughly C5-C6 disc space level. No suspicious neck adenopathy identified. No suspicious enhancement. IMPRESSION: No concerning mass or adenopathy. No inflammatory changes to the parotid or submandibula r glands
== END | disposition home or self-care (01) ==
LOC: RADCTMAIN 08:56
PROVIDERS: ATTEND Obstetrics & Gynecology
DX: K11.20 Sialoadenitis, unspecified (principal)
CPT/HCPCS: 70491; Q9967

== ENCOUNTER → 2020-06-19 | Outpatient (CLI) | payer OTHER ==
--- NOTE | 2020-06-19 13:36 | NM ---
EXAMINATION TYPE: NM bone 3 phase DATE OF EXAM: 06/19/2020 COMPARISON: CT 03/22/2020, 10/30/2018 HISTORY: Atypical facial pain Triple phase bone scintigraphy was performed following the injection of 22.4 mCi Tc 99m MDP. Immedia te images and 4 hours post injection images acquired over the facial bones. FINDINGS: Patient's CT scan of 03/22/2020 and 10/30/2018 there is a focal defect at the inferior margin of the left maxillary sinus. There is no significant abnormal accumulation of radiotracer to suggest metastatic disease to the bon e or other significant abnormality. Mild asymmetric uptake on the frontal view at the level of the na sopharynx on delayed imaging. Likely to be related to rotation. IMPRESSION: No scintigraphic evidence of osteomyelitis. There is a focal defect at the inferior margin of the lef t maxillary sinus
== END | disposition home or self-care (01) ==
LOC: RADNMMAIN 07:21
PROVIDERS: ATTEND Family Medicine
DX: G50.1 Atypical facial pain (principal)
CPT/HCPCS: 78315; A9503

== ENCOUNTER 2021-07-27 07:43 | Emergency (ER) | payer OTHER ==
[2021-07-27 07:48] VITALS: RESP 18; TEMP 98.8
--- NOTE | 2021-07-27 08:06 | ED ---
General Adult HPI - General Chief complaint: Extremity Problem,Nontraumatic Stated complaint: LT leg pain Time Seen by Provider: 07/27/21 07:45 Source: patient, RN notes reviewed, old records reviewed Mode of arrival: ambulatory Limitations: no limitations - History of Present Illness Initial comments: This is a 56-year-old female presents emergency department stating that 2 weeks ago she had an ultrasound of her leg showed a Nayak cyst since then about a week and a half ago she was cleaning out a car and since then she's had swelling in the superior anterior aspect of her knee above the patella. Patient states it does hurt much more to walk. Patient states she has an appointment for orthopedics in the near future. Patient states her doctor gave her another prescription to go have another ultrasound to rule out DVT even though she's having no calf tenderness and no swelling except for the effusion around the knee. Patient denies any redness of the leg. Patient denies any numbness or weakness. - Related Data Home Medications Medication Instructions Recorded Confirmed clonazePAM 1 mg PO Q12HR PRN 01/24/19 03/14/19 Atorvastatin [Lipitor] 20 mg PO DAILY 03/14/19 03/14/19 DULoxetine HCL [Cymbalta] 60 mg PO DAILY 03/14/19 03/14/19 Fluticasone Nasal [place] [Flonase 1 spray EA NOSTRIL DAILY 03/14/19 03/14/19 Nasal [place]] [id number] Otic 4 drops BOTH EARS BID 03/14/19 03/14/19 [Cortisporin Otic Soln] amLODIPine [Norvasc] 10 mg PO DAILY 03/14/19 03/14/19 Allergies Allergy/AdvReac Type Severity Reaction Status Date / Time No Known Allergies Allergy Verified 07/27/21 07:48 Review of Systems ROS Statement: Those systems with pertinent positive or pertinent negative responses have been documented in the HPI. ROS Other: All systems not noted in ROS Statement are negative. Past Medical History Past Medical History: Hyperlipidemia, Hypertension, Osteoarthritis (OA) Additional Past Medical History / Comment(s): lost of balance a couple times, headaches, blurred vision History of Any Multi-Drug Resistant Organisms: None Reported Past Surgical History: Cholecystectomy, Hernia Repair, Hysterectomy Additional Past Surgical History / Comment(s): sinus surgery Past Anesthesia/Blood Transfusion Reactions: Motion Sickness Past Psychological History: Anxiety, Depression Smoking Status: Vaper Past Alcohol Use History: Rare Past Drug Use History: None Reported - Past Family History Mother Family Medical History: No Reported History Father History Unknown: Yes General Exam - General Exam Comments Initial Comments: GENERAL Patient is well-developed and well-nourished. Patient is in mild distress. EYES Patient's pupils are equal and round. Extraocular motion is intact SKIN Unremarkable NEURO The patient is alert and oriented 3 PYSCH Patient has normal interpersonal interactions. MUSCULOSKELETAL Patient's left leg has a Nayak cyst behind the knee and she has a moderate effusion about the knee superior to the patella Limitations: no limitations Course Vital Signs 07/27/21 07/27/21 07:44 07:49 Temperature 98.8 F Pulse Rate 112 H Respiratory 18 18 Rate Blood Pressure 143/91 Medical Decision Making - Medical Decision Making X-ray of the knee shows small effusion. Knee immobilizer will be placed. Disposition Clinical Impression: Bakers cyst, Knee effusion, left Disposition: HOME SELF-CARE Condition: Good Instructions (If sedation given, give patient instructions): Swollen Knee Joint (ED), Bakers Cyst (ED) Is patient prescribed a controlled substance at d/c from ED?: No Referrals: Rob Shine DO [Primary Care Provider] - 1-2 days Time of Disposition: 08:31
--- NOTE | 2021-07-27 08:22 | XR ---
EXAMINATION TYPE: XR knee complete LT DATE OF EXAM: 07/27/2021 COMPARISON: NONE HISTORY: 56 years Female. STUDY INDICATION GIVEN: Knee effusion . TECHNIQUE: 3 radiographs of the left knee FINDINGS AND IMPRESSION: No acute osseous or articular abnormality. Small knee joint effusion. Mild narrowing of the medial compartment suggests arthrosis. Incidental fabella versus loose joint body in the posterior knee. Mild soft tissue swelling around the knee joint.
[2021-07-27 08:56] VITALS: BP 126/87; PULSE 90
== END 2021-07-27 08:52 | disposition home or self-care (01) ==
LOC: EC 07:43
DX: M71.22 Synovial cyst of popliteal space [Baker], left knee (principal); E78.5 Hyperlipidemia, unspecified; F32.9 Major depressive disorder, single episode, unspecified; F41.9 Anxiety disorder, unspecified; I10 Essential (primary) hypertension; M19.90 Unspecified osteoarthritis, unspecified site; F17.290 Nicotine dependence, other tobacco product, uncomplicated
CPT/HCPCS: 29505; 99283

== ENCOUNTER 2021-10-04 09:07 | Emergency (ER) | payer OTHER ==
[2021-10-04 09:13] VITALS: RESP 18
--- NOTE | 2021-10-04 09:26 | ED ---
General Adult HPI - General Chief complaint: Extremity Injury, Lower Stated complaint: Poss DVT Time Seen by Provider: 10/04/21 09:10 Source: patient, RN notes reviewed, old records reviewed Mode of arrival: ambulatory Limitations: no limitations - History of Present Illness Initial comments: This is a 56-year-old female presents emergency Department complaining of some bruising to the posterior aspect of her left leg. Patient states she had surgery approximately one week on her knee. Patient states she has no pain to the knee there is no overall swelling to the leg there is no calf tenderness. Patient denies any difficulty breathing shortness of breath or chest pain. Patient states she was told by physical therapy she might of blood cultures she came to the emergency department. - Related Data Home Medications Medication Instructions Recorded Confirmed clonazePAM 1 mg PO Q12HR PRN 01/24/19 03/14/19 Atorvastatin [Lipitor] 20 mg PO DAILY 03/14/19 03/14/19 DULoxetine HCL [Cymbalta] 60 mg PO DAILY 03/14/19 03/14/19 Fluticasone Nasal [place] [Flonase 1 spray EA NOSTRIL DAILY 03/14/19 03/14/19 Nasal [place]] Tmgrktng-Czclzuawp-Ge Otic 4 drops BOTH EARS BID 03/14/19 03/14/19 [Cortisporin Otic Soln] amLODIPine [Norvasc] 10 mg PO DAILY 03/14/19 03/14/19 Allergies Allergy/AdvReac Type Severity Reaction Status Date / Time No Known Allergies Allergy Verified 10/04/21 09:13 Review of Systems ROS Statement: Those systems with pertinent positive or pertinent negative responses have been documented in the HPI. ROS Other: All systems not noted in ROS Statement are negative. Past Medical History Past Medical History: Hyperlipidemia, Hypertension, Osteoarthritis (OA) Additional Past Medical History / Comment(s): lost of balance a couple times, headaches, blurred vision History of Any Multi-Drug Resistant Organisms: None Reported Past Surgical History: Cholecystectomy, Hernia Repair, Hysterectomy, Orthopedic Surgery Additional Past Surgical History / Comment(s): sinus surgery, left knee monsivais cyst Past Anesthesia/Blood Transfusion Reactions: Motion Sickness Past Psychological History: Anxiety, Depression Smoking Status: Vaper Past Alcohol Use History: Rare Past Drug Use History: None Reported - Past Family History Mother Family Medical History: No Reported History Father History Unknown: Yes General Exam - General Exam Comments Initial Comments: GENERAL: Patient is well-developed and well-nourished. Patient is nontoxic and well- hydrated and is in no acute distress. ENT: Neck is soft and supple. No significant lymphadenopathy is noted. Oropharynx is clear. Moist mucous membranes. EYES: The sclera were anicteric and conjunctiva were pink and moist. Extraocular movements were intact and pupils were equal round and reactive to light. Eyelid s were unremarkable. SKIN: Skin is clear with no lesions or rashes and otherwise unremarkable. NEUROLOGIC: Patient is alert and oriented x3. Cranial nerves II through XII are grossly intact. Motor and sensory are also intact. Normal speech, volume and content. Symmetrical smile. MUSCULOSKELETAL: Patient has some bruising to the posterior aspect of the left calf. Patient also some bruising to the anterior aspect of the leg. There is no swelling edema LYMPHATICS: No significant lymphadenopathy is noted PSYCHIATRIC: Normal psychiatric evaluation. Limitations: no limitations Course Vital Signs 10/04/21 09:09 Temperature 98.7 F Pulse Rate 129 H Respiratory 18 Rate Blood Pressure 139/87 O2 Sat by Pulse 99 Oximetry Medical Decision Making - Medical Decision Making Ultrasound shows no DVT. Disposition Clinical Impression: Postoperative ecchymosis Disposition: HOME SELF-CARE Condition: Good Instructions (If sedation given, give patient instructions): Ecchymosis (ED) Is patient prescribed a controlled substance at d/c from ED?: No Referrals: Rob Shine DO [Primary Care Provider] - 1-2 days Time of Disposition: 10:29
--- NOTE | 2021-10-04 10:13 | US ---
EXAMINATION TYPE: US venous doppler duplex LE LT DATE OF EXAM: 10/04/2021 9:53 AM COMPARISON: NONE CLINICAL HISTORY: DVT. Left knee pain and swelling following recent knee surgery to removed Nayak's c yst SIDE PERFORMED: Left TECHNIQUE: The lower extremity deep venous system is examined utilizing real time linear array sonog kelsea with graded compression, doppler sonography and color-flow sonography. VESSELS IMAGED: Common Femoral Vein Deep Femoral Vein Greater Saphenous Vein * Femoral Vein Popliteal Vein Small Saphenous Vein * Left Leg: Appears negative for DVT Left popliteal fossa: 3.7 x 1.1 x 2.3cm complex area, probable Nayak's cyst IMPRESSION: 1. No definite deep vein thrombosis of the left lower extremity. Calf veins not well visualized. 2. There is a hypoechoic lesion in the left popliteal fossa measuring up to 3.7 cm which may represen t a popliteal fossa cyst, however, is indeterminate on this examination. Clinical correlation is annie mmended. If there is concern for soft tissue mass, MRI with and without contrast could be obtained.
[2021-10-04 10:49] VITALS: BP 136/78; PULSE 100; TEMP 98.6
== END 2021-10-04 10:43 | disposition home or self-care (01) ==
LOC: EC 09:07
DX: L76.22 Postprocedural hemorrhage of skin and subcutaneous tissue following other procedure (principal); I10 Essential (primary) hypertension; E78.5 Hyperlipidemia, unspecified; M19.90 Unspecified osteoarthritis, unspecified site; F41.9 Anxiety disorder, unspecified; F32.9 Major depressive disorder, single episode, unspecified; F17.210 Nicotine dependence, cigarettes, uncomplicated; Z90.49 Acquired absence of other specified parts of digestive tract; Z90.710 Acquired absence of both cervix and uterus
CPT/HCPCS: 99283

== ENCOUNTER 2023-02-09 06:27 | Emergency (ER) | payer OTHER ==
[2023-02-09 06:48] VITALS: RESP 18; TEMP 97.7
[2023-02-09] MEDS ORDERED: SODIUM CHLORIDE 0.9% 1,000 ML IV STA (07:02)
[2023-02-09] MEDS ORDERED: LORazepam 2 MG/ML INJ IV STA (07:02)
[2023-02-09] MEDS ORDERED: ONDANSETRON 4 MG/2 ML VIAL IVP STA (07:02)
[2023-02-09] MEDS ORDERED: KETOROLAC 15 MG/ML 1 ML VIAL IVP STA (07:05)
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
[2023-02-09 07:55] LABS: Basophils % (A) 0 %; Eosinophils % (A) 0 %; HCT 42.1 % (34.0-46.0); HGB 14.7 gm/dL (11.4-16.0); Lymphocytes # (A) 1.6 k/uL (1.0-4.8); Lymphocytes % (A) 16 %; MCHC 34.8 g/dL (31.0-37.0); MCV 89.3 fL (80.0-100.0); Mean Platelet Volume 7.5; Monocytes # (A) 0.4 k/uL (0-1.0); Monocytes % (A) 4 %; Neutrophils # (A) 7.6 k/uL (1.3-7.7); Neutrophils % (A) 78 %; Platelet Count 247 k/uL (150-450); RBC 4.72 m/uL (3.80-5.40); RDW 12.7 % (11.5-15.5); WBC 9.8 k/uL (3.8-10.6)
[2023-02-09 07:59] LABS: Appearance,Urine Clear (Clear); Bilirubin,Urine Negative (Negative); Blood,Urine Negative (Negative); Color,Urine Yellow; Glucose,Urine (UA) Negative (Negative); Ketones,Urine Negative (Negative); Leukocyte Esterase,Urine Negative (Negative); Nitrite,Urine Negative (Negative); PH, Urine 6.5 (5.0-8.0); Protein,Urine Negative (Negative); Specific Gravity,Urine 1.004 (1.001-1.035); Urobilinogen,Urine <2.0 mg/dL (<2.0)
[2023-02-09 08:22] LABS: ALT 23 U/L (4-34); AST 22 U/L (14-36); African American GFR (CKD) >90 (>60 ml/min/1.73 sqM); Albumin 4.6 g/dL (3.5-5.0); Alkaline Phosphatase 76 U/L (38-126); Anion Gap 8 mmol/L; Blood Urea Nitrogen 10 mg/dL (7-17); C Reactive Protein <0.5 mg/dL (<1.0); Calcium 9.8 mg/dL (8.4-10.2); Carbon Dioxide 26 mmol/L (22-30); Chloride 100 mmol/L (98-107); Glucose 141 mg/dL (74-99); Non-African American GFR(CKD) >90 (>60 ml/min/1.73 sqM); Potassium 4.1 mmol/L (3.5-5.1); Sodium 134 mmol/L (137-145); Total Bilirubin 0.4 mg/dL (0.2-1.3); Total Protein 7.7 g/dL (6.3-8.2)
--- NOTE | 2023-02-09 08:22 | CT ---
EXAMINATION TYPE: CT facial bones w con DATE OF EXAM: 02/09/2023 COMPARISON: CT facial bones 2018 HISTORY: Left sided facial swelling, pain, nausea and dizziness CT DLP: 422.9 mGycm Automated exposure control for dose reduction was used. CONTRAST: CT scan of the facial bones is performed with IV Contrast, patient injected with 100 mL of Isovue 370 . FINDINGS: Paranasal sinuses remain grossly clear. Ostiomeatal complexes are patent bilaterally The or bital floors and glass are intact. The globes are intact bilaterally. Parotid and submandibular gland s are symmetric and felt within normal limits. The paraPharyngeal fat spaces are maintained bilateral ly. Visualized portion of brain parenchyma is unremarkable. Visualized airway is patent. Few scatter ed subcentimeter lymph nodes. No concerning greater than 1 cm neck adenopathy. No abnormal enhancemen t is seen. No suspicious opacification of the mastoid air cells. IMPRESSION: Unremarkable study.
[2023-02-09] MEDS ORDERED: IBUPROFEN 600 MG STARTER PACK 4 TAB BTL PO STA (08:26)
[2023-02-09] MEDS ORDERED: ONDANSETRON 4 MG ODT STARTER PACK 2 TAB BTL PO STA (08:26)
[2023-02-09] MEDS ORDERED: traMADol 50 MG STARTER PACK 3 TAB BTL PO STA (08:26)
[2023-02-09] MEDS ORDERED: DEXAMETHASONE SOD PHOSPHATE 10 MG/ML 1 ML VIAL IVP STA (08:27)
[2023-02-09 08:58] VITALS: BP 128/73; PULSE 80
[2023-02-09 09:07] LABS: Erythrocyte Sedimentation Rate 18 mm/hr (0-20)
== END 2023-02-09 09:09 | disposition home or self-care (01) ==
LOC: EC 06:27
DX: R51.9 Headache, unspecified (principal); F41.9 Anxiety disorder, unspecified; R11.0 Nausea; I10 Essential (primary) hypertension; E78.5 Hyperlipidemia, unspecified; F32.A Depression, unspecified; F17.290 Nicotine dependence, other tobacco product, uncomplicated; M19.90 Unspecified osteoarthritis, unspecified site; Z79.52 Long term (current) use of systemic steroids; Z79.899 Other long term (current) drug therapy
CPT/HCPCS: 36415; 80053; 85652; 83605; 84484; 85025; 86140; 81003; 70487; 99284; 96374; 96375 ×3; 96361; J2060; J1100; J2405; J1885; S0119; Q9967

== ENCOUNTER 2023-03-10 10:34 | Day surgery (SDC) | payer OTHER ==
[2023-03-09 14:18] VITALS: BMI 29.3
[2023-03-10 11:06] LABS: Glucose,Whole Blood 120 mg/dL (70-110)
[2023-03-10 11:09] VITALS: TEMP 98.2
[2023-03-10] MEDS ORDERED: LACTATED RINGERS 1,000 ML IV ONE (11:09)
[2023-03-10] MEDS ORDERED: ONDANSETRON 4 MG/2 ML VIAL ONE (11:10)
[2023-03-10] MEDS ORDERED: PROPOFOL 10 MG/ML 20 ML VIAL IV ONE (11:46)
[2023-03-10] MEDS ORDERED: LIDOCAINE 2% INJ 20 MG/ML (2 ML VIAL) ONE (11:46)
--- NOTE | 2023-03-10 12:05 | P.PCN ---
Date of Procedure: 03/10/23 Procedure(s) Performed: Brief history: Patient is a pleasant 57-year-old white female scheduled for an elective upper endoscopy as well as colonoscopy as a part of evaluation of severe epigastric pain for the last 1 month duration. She is been to the emergency room on [address] of the abdomen as well as ultrasound of the abdomen that was unremarkable. she is scheduled for an upper endoscopy as well as colonoscopy to evaluate further Procedure performed: Esophagogastroduodenoscopy with biopsy Colonoscopy Preoperative diagnosis: Chronic epigastric pain of unknown duration Change in bowel habits Anesthesia: MAC Procedure: After informed consent was obtained from the patient was brought into the endoscopy unit and IV sedation was administered by anesthesia under continuous monitoring. Initially upper endoscopy was done. The Olympus GF 160 video endoscope was inserted inserted into the mouth and esophagus intubated without any difficulty and was gradually advanced into the stomach and duodenum and carefully examined. The bulb and second part of the duodenum appeared normal. Biopsies done from the duodenum to rule out celiac disease. The scope was then withdrawn into the stomach adequately insufflated with air and upon careful examination the antrum had mild gastritis and biopsies were done from this area. Mucosa of the body, cardia and fundus appeared normal. The scope was then withdrawn into the esophagus. The GE junction was located at 40 cm to the incisors. It appeared regular with no erythema erosions or ulcerations. Rest of the esophagus appeared normal. Patient tolerated the procedure well. At this time the patient continued to remain sedation. Initial digital rectal examination was normal. Olympus CF 160 video colonoscope was then inserted into the rectum and gradually advanced to the cecum without any difficulty. Careful examination was performed as the scope was gradually being withdrawn. The prep wafair. The cecum, ascending colon, transverse colon, descending colon, sigmoid colon and rectum appeared normal. Retroflexion was performed in the rectum and no lesions were noted. Patient tolerated the procedure well. Impression: 1. Upper endoscopy revealed minimal antral gastritis but no evidence of esophagitis or peptic 2. Colonoscopy was within normal limits with no evidence of colitis or colorectal neoplasia Recommendations: Findings of this examination were discussed with the patient as well wilfred family. She was advised to follow with the biopsy results. She'll be seen in office in 2-3 weeks. recommend repeat screening colonoscopy in 10 years.
[2023-03-10 12:12] VITALS: RESP 16
[2023-03-10 12:28] VITALS: BP 126/84; PULSE 95
== END 2023-03-10 13:03 | disposition home or self-care (01) ==
LOC: ORWHC2ENDO 10:34
PROVIDERS: ATTEND Internal Medicine Gastroenterology
DX: K29.50 Unspecified chronic gastritis without bleeding (principal); R19.4 Change in bowel habit; K20.90 Esophagitis, unspecified without bleeding; I10 Essential (primary) hypertension; E78.5 Hyperlipidemia, unspecified; R73.09 Other abnormal glucose; F41.8 Other specified anxiety disorders; F17.290 Nicotine dependence, other tobacco product, uncomplicated; Z79.899 Other long term (current) drug therapy
CPT/HCPCS: 88305; 45378; 43239; J2405; J2704; J2001

== ENCOUNTER 2023-03-12 10:11 | Emergency (ER) | payer OTHER ==
[2023-03-12] MEDS ORDERED: ONDANSETRON 4 MG/2 ML VIAL IVP STA (10:43)
[2023-03-12] MEDS ORDERED: SODIUM CHLORIDE 0.9% 1,000 ML IV STA (10:43)
[2023-03-12] MEDS ORDERED: PANTOPRAZOLE 40 MG/10 ML VIAL IVP STA (10:43)
[2023-03-12] MEDS ORDERED: HYDROmorphone 1 MG/ML 1 ML SYRINGE IVP STA (10:44)
--- NOTE | 2023-03-12 10:50 | ED ---
General Adult HPI - General Chief complaint: Abdominal Pain Stated complaint: ABD PAIN Time Seen by Provider: 03/12/23 10:16 Source: patient, EMS, RN notes reviewed Mode of arrival: EMS Limitations: no limitations - History of Present Illness Initial comments: Patient is a pleasant 57-year-old female presenting to the emergency department with concerns for abdominal pain. Onset of symptoms was around a month ago. Patient has had 2 scopes EGDs done since that time and one colonoscopy. Patient is on Carafate, Pepcid, and Protonix. Patient has nausea without vomiting. Patient does admit to feeling anxious. No history of chronic problems prior to this. - Related Data Home Medications Medication Instructions Recorded Confirmed Enalapril [Vasotec] 10 mg PO DAILY 03/09/23 03/12/23 Escitalopram [Lexapro] 20 mg PO DAILY 03/09/23 03/12/23 Famotidine [Pepcid] 20 mg PO DAILY 03/09/23 03/12/23 Ferrous Sulfate [Feosol] 325 mg PO DAILY 03/09/23 03/12/23 Hyoscyamine Sulfate [Levsin] 0.125 mg PO TID 03/09/23 03/12/23 Omeprazole 40 mg PO HS 03/09/23 03/12/23 Atorvastatin [Lipitor] 10 mg PO HS 03/12/23 03/12/23 LORazepam [Ativan] 0.5 mg PO BID 03/12/23 03/12/23 Linaclotide [Linzess] 72 mcg PO DAILY 03/12/23 03/12/23 Ondansetron Odt [Zofran Odt] 4 mg PO Q8HR PRN 03/12/23 03/12/23 Oxybutynin Xl [Ditropan XL] 5 mg PO DAILY 03/12/23 03/12/23 Previous Rx's Medication Instructions Recorded Metoclopramide HCl [Reglan] 10 mg PO Q6HR PRN #15 tablet 03/12/23 Allergies Allergy/AdvReac Type Severity Reaction Status Date / Time No Known Allergies Allergy Verified 03/12/23 11:50 Review of Systems ROS Statement: Those systems with pertinent positive or pertinent negative responses have been documented in the HPI. ROS Other: All systems not noted in ROS Statement are negative. Constitutional: Denies: fever Eyes: Denies: eye pain ENT: Denies: ear pain Respiratory: Denies: cough, dyspnea Cardiovascular: Denies: chest pain Endocrine: Denies: fatigue Gastrointestinal: Reports: as per HPI, abdominal pain, nausea. Denies: vomiting Genitourinary: Denies: dysuria Musculoskeletal: Denies: back pain Skin: Denies: rash Psychiatric: Reports: anxiety Past Medical History Past Medical History: Hyperlipidemia, Hypertension, Osteoarthritis (OA) Additional Past Medical History / Comment(s): having abdominal pain, has had green stools for 1 month, had stool cultur done on 03-09-23-pending emr, hx. anemia, headaches, blurred vision,tinnitis History of Any Multi-Drug Resistant Organisms: None Reported Past Surgical History: Cholecystectomy, Hernia Repair, Hysterectomy, Orthopedic Surgery Additional Past Surgical History / Comment(s): sinus surgery, left knee monsivais cyst Past Anesthesia/Blood Transfusion Reactions: No Reported Reaction, Motion Sickness Additional Past Anesthesia/Blood Transfusion Reaction / Comment(s): no hx blood transfusion Smoking Status: Current every day smoker, Vaper - Past Family History Mother Family Medical History: No Reported History Father History Unknown: Yes Family Medical History: Cancer Additional Family Medical History / Comment(s): lung General Exam Limitations: no limitations General appearance: alert, in no apparent distress Head exam: Present: atraumatic Eye exam: Present: normal appearance Neck exam: Present: normal inspection Respiratory exam: Present: normal lung sounds bilaterally Cardiovascular Exam: Present: regular rate, normal rhythm Expanded Peripheral pulses: 2+: Posterior Tibialis (R), Posterior Tibialis (L), Dorsalis Pedis (R), Dorsalis Pedis (L) GI/Abdominal exam: Present: soft, tenderness (Mild epigastric tenderness to palpation), normal bowel sounds. Absent: distended, guarding, rebound, rigid, pulsatile mass Extremities exam: Present: normal inspection. Absent: pedal edema, calf tender ness Neurological exam: Present: alert Psychiatric exam: Present: normal affect, normal mood Skin exam: Present: normal color Course Vital Signs 03/12/23 10:16 Temperature 98.5 F Pulse Rate 108 H Respiratory 19 Rate Blood Pressure 139/111 O2 Sat by Pulse 94 L Oximetry EKG Findings - EKG Results: EKG: interpreted by ERMD, sinus rhythm, normal axis, normal QRS, normal ST/T Medical Decision Making - Medical Decision Making Was pt. sent in by a medical professional or institution ([facility] Alford, CONTRACT ADMIN, urgent care, hospital, or [facility]...) When possible be specific @ -No Did you speak to anyone other than the patient for history (EMS, parent, family, police, friend...)? What history was obtained from this source @ -No Did you review nursing and triage notes (agree or disagree)? Why? @ -I reviewed and agree with nursing and triage notes Were old charts reviewed (outside hosp., previous admission, EMS record, old EKG, old radiological studies, urgent care reports/EKG's, [facility] records)? Report findings @ -No old charts were reviewed Differential Diagnosis (chest pain, altered mental status, abdominal pain women, abdominal pain men, vaginal bleeding, weakness, fever, dyspnea, syncope, headache, dizziness, GI bleed, back pain, seizure, CVA, palpatations, mental health)? @ -not applicable EKG interpreted by me (3pts min.). @ -As above X-rays interpreted by me (1pt min.). @ -None done CT interpreted by me (1pt min.). @ -Report reviewed U/S interpreted by me (1pt. min.). @ -None done What testing was considered but not performed or refused? (CT, X-rays, U/S, labs)? Why? @ -None What meds were considered but not given or refused? Why? @ -None Did you discuss the management of the patient with other professionals (professionals i.e. DACIA Alford, CONTRACT ADMIN, lab, RT, psych nurse, social welfare research worker, track broom operator, teacher, property disposal officer, supervisor case loading)? Give summary @ -No Was smoking cessation discussed for >3mins.? @ -No Was critical care preformed (if so, how long)? @ -No Were there social determinants of health that impacted care today? How? (Homelessness, low income, unemployed, alcoholism, drug addiction, transportation, low edu. Level, literacy, decrease access to med. care, [facility], rehab)? @ -No Was there de-escalation of care discussed even if they declined (Discuss DNR or withdrawal of care, Hospice)? DNR status @ -No What co-morbidities impacted this encounter? (DM, HTN, Smoking, COPD, CAD, Ca ncer, CVA, ARF, Chemo, Hep., AIDS, mental health diagnosis, sleep apnea, morbid obesity)? @ -None Was patient admitted / discharged? Hospital course, mention meds given and route, prescriptions, significant lab abnormalities, going to OR and other pertinent info. @ -Patient reevaluated and updated. Patient has some improvement however is s till having some symptoms . Patient amiss anxiety and is receptive to medication for this. Patient also has some nausea and is also receptive to medication for this. She will be discharged as her symptoms have been present for several months. Patient is advised follow-up with her primary care ph ysician and physician who did the scope. Patient also received prescription for Reglan. Undiagnosed new problem with uncertain prognosis? @ -No Drug Therapy requiring intensive monitoring for toxicity (Heparin, Nitro, Insulin, Cardizem)? @ -No Were any procedures done? @ -No Diagnosis/symptom? @ -Abdominal pain Acute, or Chronic, or Acute on Chronic? @ -Acute on chronic Uncomplicated (without systemic symptoms) or Complicated (systemic symptoms)? @ -default Side effects of treatment? @ -No Exacerbation, Progression, or Severe Exacerbation? @ -No Poses a threat to life or bodily function? How? (Chest pain, [place], [place], pneumonia, PE, COPD, DKA, ARF, appy, cholecystitis, CVA, Diverticulitis, Homicidal, Suicidal, threat to staff... and all critical care pts) @ -No - Lab Data Result diagrams: 03/12/23 11:00 03/12/23 11:00 Lab Results 03/12/23 03/12/23 03/12/23 Range/Units 11:00 11:00 11:00 WBC 11.2 H (3.8-10.6) k/uL RBC 4.42 (3.80-5.40) m/uL Hgb 13.4 (11.4-16.0) gm/dL Hct 39.7 (34.0-46.0) % MCV 89.6 (80.0-100.0) fL MCH 30.2 (25.0-35.0) pg MCHC 33.7 (31.0-37.0) g/dL RDW 12.3 (11.5-15.5) % Plt Count 311 (150-450) k/uL MPV 7.3 Neutrophils % 71 % Lymphocytes % 21 % Monocytes % 6 % Eosinophils % 1 % Basophils % 0 % Neutrophils # 8.0 H (1.3-7.7) k/uL Lymphocytes # 2.3 (1.0-4.8) k/uL Monocytes # 0.7 (0-1.0) k/uL Eosinophils # 0.1 (0-0.7) k/uL Basophils # 0.0 (0-0.2) k/uL PT 9.7 (9.0-12.0) sec INR 0.9 (<1.2) APTT 24.5 (22.0-30.0) sec Sodium (137-145) mmol/L Potassium (3.5-5.1) mmol/L Chloride (98-107) mmol/L Carbon Dioxide (22-30) mmol/L Anion Gap mmol/L BUN (7-17) mg/dL Creatinine (0.52-1.04) mg/dL Est GFR (CKD-EPI)AfAm (>60 ml/min/1.73 sqM) Est GFR (CKD-EPI)NonAf (>60 ml/min/1.73 sqM) Glucose (74-99) mg/dL Calcium (8.4-10.2) mg/dL Total Bilirubin (0.2-1.3) mg/dL AST (14-36) U/L ALT (4-34) U/L Alkaline Phosphatase (38-126) U/L Total Protein (6.3-8.2) g/dL Albumin (3.5-5.0) g/dL Amylase (30-110) U/L Lipase (23-300) U/L Urine Color Colorless Urine Appearance Clear (Clear) Urine pH 6.5 (5.0-8.0) Ur Specific [place] 1.001 (1.001-1.035) Urine Protein Negative (Negative) Urine Glucose (UA) Negative (Negative) Urine Ketones Negative (Negative) Urine Blood Trace H (Negative) Urine Nitrite Negative (Negative) Urine Bilirubin Negative (Negative) Urine Urobilinogen <2.0 (<2.0) mg/dL Ur Leukocyte Esterase Negative (Negative) Urine RBC <1 (0-5) /hpf Urine WBC <1 (0-5) /hpf 03/12/23 Range/Units 11:00 WBC (3.8-10.6) k/uL RBC (3.80-5.40) m/uL Hgb (11.4-16.0) gm/dL Hct (34.0-46.0) % MCV (80.0-100.0) fL MCH (25.0-35.0) pg MCHC (31.0-37.0) g/dL RDW (11.5-15.5) % Plt Count (150-450) k/uL MPV Neutrophils % % Lymphocytes % % Monocytes % % Eosinophils % % Basophils % % Neutrophils # (1.3-7.7) k/uL Lymphocytes # (1.0-4.8) k/uL Monocytes # (0-1.0) k/uL Eosinophils # (0-0.7) k/uL Basophils # (0-0.2) k/uL PT (9.0-12.0) sec INR (<1.2) APTT (22.0-30.0) sec Sodium 139 (137-145) mmol/L Potassium 3.9 (3.5-5.1) mmol/L Chloride 101 (98-107) mmol/L Carbon Dioxide 25 (22-30) mmol/L Anion Gap 13 mmol/L BUN 7 (7-17) mg/dL Creatinine 0.80 (0.52-1.04) mg/dL Est GFR (CKD-EPI)AfAm >90 (>60 ml/min/1.73 sqM) Est GFR (CKD-EPI)NonAf 82 (>60 ml/min/1.73 sqM) Glucose 129 H (74-99) mg/dL Calcium 9.7 (8.4-10.2) mg/dL Total Bilirubin 0.4 (0.2-1.3) mg/dL AST 23 (14-36) U/L ALT 24 (4-34) U/L Alkaline Phosphatase 71 (38-126) U/L Total Protein 7.6 (6.3-8.2) g/dL Albumin 4.6 (3.5-5.0) g/dL Amylase 40 (30-110) U/L Lipase 70 (23-300) U/L Urine Color Urine Appearance (Clear) Urine pH (5.0-8.0) Ur Specific [place] (1.001-1.035) Urine Protein (Negative) Urine Glucose (UA) (Negative) Urine Ketones (Negative) Urine Blood (Negative) Urine Nitrite (Negative) Urine Bilirubin (Negative) Urine Urobilinogen (<2.0) mg/dL Ur Leukocyte Esterase (Negative) Urine RBC (0-5) /hpf Urine WBC (0-5) /hpf Disposition Clinical Impression: Abdominal pain Disposition: HOME SELF-CARE Condition: Stable Instructions (If sedation given, give patient instructions): Abdominal Pain (ED) Additional Instructions: Please do follow-up with primary care physician in the next day or 2 for recheck. Please also follow-up with that did your scope. Prescription has been sent to pharmacy. Return for increased pain, vomiting, not tolerating oral intake, fever, worsening symptoms or other concerns. Prescriptions: Metoclopramide HCl [Reglan] 10 mg PO Q6HR PRN #15 tablet PRN Reason: Nausea Is patient prescribed a controlled substance at d/c from ED?: No Referrals: Rob Shine DO [Primary Care Provider] - 1-2 days Sol Chambers MD [STAFF PHYSICIAN] - 1-2 days Time of Disposition: 12:18
[2023-03-12 11:16] LABS: Basophils % (A) 0 %; Eosinophils # (A) 0.1 k/uL (0-0.7); Eosinophils % (A) 1 %; HCT 39.7 % (34.0-46.0); HGB 13.4 gm/dL (11.4-16.0); Lymphocytes # (A) 2.3 k/uL (1.0-4.8); Lymphocytes % (A) 21 %; MCH 30.2 pg (25.0-35.0); MCHC 33.7 g/dL (31.0-37.0); MCV 89.6 fL (80.0-100.0); Mean Platelet Volume 7.3; Monocytes # (A) 0.7 k/uL (0-1.0); Monocytes % (A) 6 %; Neutrophils % (A) 71 %; Platelet Count 311 k/uL (150-450); RBC 4.42 m/uL (3.80-5.40); RDW 12.3 % (11.5-15.5); WBC 11.2 k/uL (3.8-10.6)
[2023-03-12 11:22] LABS: ALT 24 U/L (4-34); AST 23 U/L (14-36); African American GFR (CKD) >90 (>60 ml/min/1.73 sqM); Albumin 4.6 g/dL (3.5-5.0); Alkaline Phosphatase 71 U/L (38-126); Amylase 40 U/L (30-110); Anion Gap 13 mmol/L; Blood Urea Nitrogen 7 mg/dL (7-17); Calcium 9.7 mg/dL (8.4-10.2); Carbon Dioxide 25 mmol/L (22-30); Chloride 101 mmol/L (98-107); Glucose 129 mg/dL (74-99); Lipase 70 U/L (23-300); Non-African American GFR(CKD) 82 (>60 ml/min/1.73 sqM); Potassium 3.9 mmol/L (3.5-5.1); Sodium 139 mmol/L (137-145); Total Bilirubin 0.4 mg/dL (0.2-1.3); Total Protein 7.6 g/dL (6.3-8.2)
[2023-03-12 11:25] LABS: INR 0.9 (<1.2); Partial Thromboplastin Time 24.5 sec (22.0-30.0); Prothrombin Time 9.7 sec (9.0-12.0)
[2023-03-12 11:26] LABS: Appearance,Urine Clear (Clear); Bilirubin,Urine Negative (Negative); Blood,Urine Trace (Negative); Color,Urine Colorless; Glucose,Urine (UA) Negative (Negative); Ketones,Urine Negative (Negative); Leukocyte Esterase,Urine Negative (Negative); Nitrite,Urine Negative (Negative); PH, Urine 6.5 (5.0-8.0); Protein,Urine Negative (Negative); RBC,Urine <1 /hpf (0-5); Specific Gravity,Urine 1.001 (1.001-1.035); Urobilinogen,Urine <2.0 mg/dL (<2.0); WBC,Urine <1 /hpf (0-5)
--- NOTE | 2023-03-12 12:04 | CT ---
EXAMINATION TYPE: CT abdomen pelvis w con CT DLP: 876.1 mGycm, Automated exposure control for dose reduction was used. DATE OF EXAM: 03/12/2023 11:47 AM COMPARISON: CT abdomen pelvis most recent from 11/24/2018. CLINICAL INDICATION:Female, 57 years old with history of abdominal pain; Generalized abdominal pain a nd nausea. TECHNIQUE: Standard CT of the abdomen and pelvis following the administration of 100 cc of Isovue 3 00 IV contrast material. Coronal and sagittal reformats were performed. FINDINGS: LOWER CHEST: Posterior dependent subsegmental atelectasis is noted. ABDOMEN LIVER: Unremarkable GALLBLADDER AND BILE DUCTS: Gallbladder is surgically absent with mild intrahepatic and extra hepatic biliary dilatation likely physiologic and a postcholecystectomy change. No evidence of choledocholit hiasis. PANCREAS: Unremarkable. SPLEEN: Unremarkable. ADRENAL GLANDS: Unremarkable. KIDNEYS AND URETERS: No evidence of hydronephrosis or renal calculus. The kidneys enhance symmetrical ly with bilateral subcentimeter hypodense foci within the cortices which likely represent cysts. PELVIS BLADDER: Unremarkable REPRODUCTIVE: The uterus is surgically absent. No suspicious adnexal mass. ABDOMEN & PELVIS STOMACH AND BOWEL: Stomach and duodenum are unremarkable. No focal wall thickening or surrounding inf lammatory changes. Sutures are again suggested along the lateral margin of the proximal sigmoid colon . The appendix is within normal limits. No evidence of bowel obstruction. PERITONEUM: No evidence of pneumoperitoneum or free fluid. VASCULATURE: Moderate atherosclerotic calcifications are present throughout the abdominal aorta and i ts branches. No evidence of aortic aneurysm. Few pelvic phlebolith. MUSCULOSKELETAL: No acute osseous abnormalities LYMPH NODES: No gross evidence for lymphadenopathy. SOFT TISSUE/ABDOMINAL WALL: Post surgical changes of the anterior dome wall. Suspected tiny fat conta ining about the hernia redemonstrated. Superior to this again just right of midline is a small hernia defect containing fat and tiny mesenteric vessels again. IMPRESSION: No acute abdominal/pelvic process.
[2023-03-12] MEDS ORDERED: LORazepam 2 MG/ML INJ IV STA (12:13)
[2023-03-12] MEDS ORDERED: METOCLOPRAMIDE 5 MG/ML 2 ML VIAL IVP STA (12:13)
[2023-03-12 12:44] VITALS: BP 126/81; PULSE 80; RESP 17; TEMP 97.9
== END 2023-03-12 12:54 | disposition home or self-care (01) ==
LOC: EC 10:11
DX: R10.13 Epigastric pain (principal); I10 Essential (primary) hypertension; E78.5 Hyperlipidemia, unspecified; M19.90 Unspecified osteoarthritis, unspecified site; F17.290 Nicotine dependence, other tobacco product, uncomplicated; Z79.899 Other long term (current) drug therapy; Z90.49 Acquired absence of other specified parts of digestive tract
CPT/HCPCS: 36415; 93005; 80053; 82150; 83690; 85025; 85610; 85730; 81001; 74177; 99285; 96374; 96375 ×4; 96361 ×2; J2060; J2765; J2405; J1170; C9113; Q9967

== ENCOUNTER 2023-03-18 05:47 | Emergency (ER) | payer OTHER ==
[2023-03-18 05:54] VITALS: TEMP 98.1
[2023-03-18] MEDS ORDERED: SODIUM CHLORIDE 0.9% 2,000 ML IV ONE (06:13)
[2023-03-18] MEDS ORDERED: PROCHLORPERAZINE INJ 10 MG/2 ML VIAL IVP STA (06:14)
[2023-03-18] MEDS ORDERED: FAMOTIDINE 20 MG/2 ML VIAL IV STA (06:14)
[2023-03-18 06:34] LABS: Basophils % (A) 0 %; Eosinophils # (A) 0.1 k/uL (0-0.7); Eosinophils % (A) 1 %; HCT 42.6 % (34.0-46.0); HGB 14.2 gm/dL (11.4-16.0); Lymphocytes # (A) 2.3 k/uL (1.0-4.8); Lymphocytes % (A) 23 %; MCH 29.9 pg (25.0-35.0); MCHC 33.3 g/dL (31.0-37.0); MCV 89.8 fL (80.0-100.0); Mean Platelet Volume 7.4; Monocytes # (A) 0.5 k/uL (0-1.0); Monocytes % (A) 5 %; Neutrophils # (A) 6.9 k/uL (1.3-7.7); Neutrophils % (A) 69 %; Platelet Count 295 k/uL (150-450); RBC 4.74 m/uL (3.80-5.40); RDW 12.5 % (11.5-15.5)
[2023-03-18 06:44] LABS: ALT 25 U/L (4-34); AST 34 U/L (14-36); African American GFR (CKD) >90 (>60 ml/min/1.73 sqM); Albumin 4.9 g/dL (3.5-5.0); Alkaline Phosphatase 63 U/L (38-126); Anion Gap 15 mmol/L; Blood Urea Nitrogen 9 mg/dL (7-17); Calcium 10.2 mg/dL (8.4-10.2); Carbon Dioxide 27 mmol/L (22-30); Chloride 96 mmol/L (98-107); Glucose 150 mg/dL (74-99); Lipase 74 U/L (23-300); Non-African American GFR(CKD) 78 (>60 ml/min/1.73 sqM); Potassium 4.4 mmol/L (3.5-5.1); Sodium 138 mmol/L (137-145); Total Bilirubin 0.8 mg/dL (0.2-1.3); Total Protein 8.6 g/dL (6.3-8.2)
[2023-03-18 06:48] VITALS: BP 143/91; PULSE 90; RESP 15
[2023-03-18 06:58] LABS: Appearance,Urine Clear (Clear); Bilirubin,Urine Negative (Negative); Blood,Urine Small (Negative); Color,Urine Light Yellow; Glucose,Urine (UA) Negative (Negative); Ketones,Urine Negative (Negative); Leukocyte Esterase,Urine Negative (Negative); Mucus,Urine Rare /hpf; Nitrite,Urine Negative (Negative); PH, Urine 7.5 (5.0-8.0); Protein,Urine Negative (Negative); RBC,Urine 2 /hpf (0-5); Specific Gravity,Urine 1.005 (1.001-1.035); Squamous Epithelial Cell,Urine <1 /hpf (0-4); Urobilinogen,Urine <2.0 mg/dL (<2.0); WBC,Urine <1 /hpf (0-5)
--- NOTE | 2023-03-18 07:03 | XR ---
EXAMINATION TYPE: XR KUB DATE OF EXAM: 03/18/2023 6:32 AM INDICATION: Patient age:Female; 57 years old; Reason for study: abdominal pain; COMPARISON: 11/24/2018 TECHNIQUE: One radiographic view of the abdomen was obtained. FINDINGS: Moderate stool burden throughout the colon. The bowel gas pattern is nonspecific without di lated loops of small or large bowel. There is no evidence for organomegaly or pneumoperitoneum. The osseous structures are intact. No abnormal calcifications are present. Fecal material and gas are de monstrated throughout the colon and rectum. Cholecystectomy clips are present. IMPRESSION: Moderate stool burden with a nonspecific bowel gas pattern without radiographic evidence for acute pr ocess.
[2023-03-18] MEDS ORDERED: KETOROLAC 15 MG/ML 1 ML VIAL IVP STA (07:09)
--- NOTE | 2023-03-18 07:11 | ED ---
Abdominal Pain HPI - General Chief Complaint: Abdominal Pain Stated Complaint: Abd Pain Time Seen by Provider: 03/18/23 06:00 Source: patient, RN notes reviewed Mode of arrival: ambulatory Limitations: no limitations - History of Present Illness Initial Comments: 57-year-old female presents emergency Department with tumor and a right-sided abdominal pain. Patient states she has panorama upper quadrant it's been on and off. She states when he comes a sprain tenths pain. She has been seen in the emergency department has been seen several times by GI and PCP she's had a colonoscopy, EGD, CAT scan with no acute findings. Patient states that she is not a drinker denies any drug use patient had a prior cholecystectomy. Patient EGD showed evidence of gastritis. Patient states his started on omeprazole she also has ongoing chronic constipation and which she was started on Linzess. Patient has no dysuria no hematuria no other complaints. - Related Data Home Medications Medication Instructions Recorded Confirmed Enalapril [Vasotec] 10 mg PO DAILY 03/09/23 03/12/23 Escitalopram [Lexapro] 20 mg PO DAILY 03/09/23 03/12/23 Famotidine [Pepcid] 20 mg PO DAILY 03/09/23 03/12/23 Ferrous Sulfate [Feosol] 325 mg PO DAILY 03/09/23 03/12/23 Hyoscyamine Sulfate [Levsin] 0.125 mg PO TID 03/09/23 03/12/23 Omeprazole 40 mg PO HS 03/09/23 03/12/23 Atorvastatin [Lipitor] 10 mg PO HS 03/12/23 03/12/23 LORazepam [Ativan] 0.5 mg PO BID 03/12/23 03/12/23 Linaclotide [Linzess] 72 mcg PO DAILY 03/12/23 03/12/23 Ondansetron Odt [Zofran Odt] 4 mg PO Q8HR PRN 03/12/23 03/12/23 Oxybutynin Xl [Ditropan XL] 5 mg PO DAILY 03/12/23 03/12/23 Previous Rx's Medication Instructions Recorded Metoclopramide HCl [Reglan] 10 mg PO Q6HR PRN #15 tablet 03/12/23 Allergies Allergy/AdvReac Type Severity Reaction Status Date / Time No Known Allergies Allergy Verified 04/26/23 05:54 Review of Systems ROS Statement: Those systems with pertinent positive or pertinent negative responses have been documented in the HPI. ROS Other: All systems not noted in ROS Statement are negative. Past Medical History Past Medical History: Hyperlipidemia, Hypertension, Osteoarthritis (OA) Additional Past Medical History / Comment(s): having abdominal pain, has had green stools for 1 month, had stool cultur done on 03-09-23-pending emr, hx. anemia, headaches, blurred vision,tinnitis History of Any Multi-Drug Resistant Organisms: None Reported Past Surgical History: Cholecystectomy, Hernia Repair, Hysterectomy, Orthopedic Surgery Additional Past Surgical History / Comment(s): sinus surgery, left knee monsiavis cyst Past Anesthesia/Blood Transfusion Reactions: No Reported Reaction, Motion Sickness Additional Past Anesthesia/Blood Transfusion Reaction / Comment(s): no hx blood transfusion Past Psychological History: Anxiety, Depression Smoking Status: Current every day smoker, Vaper Past Alcohol Use History: None Reported Past Drug Use History: None Reported - Past Family History Mother Family Medical History: No Reported History Father History Unknown: Yes Family Medical History: Cancer Additional Family Medical History / Comment(s): lung General Exam Limitations: no limitations General appearance: alert, in no apparent distress Head exam: Present: atraumatic, normocephalic, normal inspection Neck exam: Present: normal inspection, full ROM. Absent: tenderness, meningismus, lymphadenopathy Respiratory exam: Present: normal lung sounds bilaterally. Absent: respiratory distress, wheezes, rales, rhonchi, stridor Cardiovascular Exam: Present: normal rhythm, tachycardia, normal heart sounds. Absent: systolic murmur, diastolic murmur, rubs, gallop, clicks GI/Abdominal exam: Present: soft, tenderness (Mild right quadrant), normal bowel sounds. Absent: distended, guarding, rebound, rigid Back exam: Absent: CVA tenderness (R), CVA tenderness (L) Course Vital Signs 03/18/23 03/18/23 05:50 06:40 Temperature 98.1 F Pulse Rate 108 H 90 Respiratory 18 15 Rate Blood Pressure 155/95 143/91 O2 Sat by Pulse 98 95 Oximetry Medical Decision Making - Medical Decision Making Was pt. sent in by a medical professional or institution (, PA, CELLOPHANER, urgent care, hospital, or intermediate...) When possible be specific @ -No Did you speak to anyone other than the patient for history (EMS, parent, family, police, friend...)? What history was obtained from this source @ -No Did you review nursing and triage notes (agree or disagree)? Why? @ -I reviewed and agree with nursing and triage notes Were old charts reviewed (outside hosp., previous admission, EMS record, old EKG, old radiological studies, urgent care reports/EKG's, intermediate records)? Report findings @ -Reviewed recent CBC, comp, CT which showed no acute abnormality's. Differential Diagnosis (chest pain, altered mental status, abdominal pain women, abdominal pain men, vaginal bleeding, weakness, fever, dyspnea, syncope, headache, dizziness, GI bleed, back pain, seizure, CVA, palpatations, mental health, musculoskeletal)? @ -nDifferential Abdominal Pain Women: Appendicitis, Cholecystitis, diverticulosis, ischemic bowel, pancreatitis, hepatitis, UTI, gastroenteritis, AAA, incarcerated hernia, bowel obstruction, constipation, inflammatory bowel, hepatitis, peptic ulcer disease, splenic infarction, perforated viscus, vulvitis, ovarian torsion, PID, kidney stone, placenta abruption, this is not meant to be an all-inclusive listble EKG interpreted by me (3pts min.). @ -None X-rays interpreted by me (1pt min.). @ -X-ray KUB shows constipation CT interpreted by me (1pt min.). @ -None done U/S interpreted by me (1pt. min.). @ -Ultrasound liver shows status post cholecystectomy, no liver masses, there is noted hydronephrosis which is new of the right kidney What testing was considered but not performed or refused? (CT, X-rays, U/S, labs)? Why? @ -None What meds were considered but not given or refused? Why? @ -None Did you discuss the management of the patient with other professionals (professionals i.e. , PA, CELLOPHANER, lab, RT, psych nurse, social media content specialist, fire information officer, teacher, youth officer, showcase maker)? Give summary @ -No Was smoking cessation discussed for >3mins.? @ -No Was critical care preformed (if so, how long)? @ -No Were there social determinants of health that impacted care today? How? (Homelessness, low income, unemployed, alcoholism, drug addiction, transportation, low edu. Level, literacy, decrease access to med. care, long term, rehab)? @ -No Was there de-escalation of care discussed even if they declined (Discuss DNR or withdrawal of care, Hospice)? DNR status @ -No What co-morbidities impacted this encounter? (DM, HTN, Smoking, COPD, CAD, Cancer, CVA, ARF, Chemo, Hep., AIDS, mental health diagnosis, sleep apnea, morbid obesity)? @ -Chronic abdominal pain Was patient admitted / discharged? Hospital course, mention meds given and route, prescriptions, significant lab abnormalities, going to OR and other pertinent info. @ -Discharge patient has seen GI several times, PCP she's had extensive workup with no acute findings she does have no evidence of hydronephrosis today. She will follow-up with urology. Patient cannot be started on anti-inflammatories as she's been recently diagnosed with gastritis patient is on Carafate, om eprazole. I recommended the patient take Tylenol, increase fluids to make sure she is taking something for her constipation she is not to receive narcotic pain medication though she requested several times for these pain meds. I did instruct her that this make her constipation worse she has no acute findings to warrant narcotic pain meds. She has an appointment with GI today we discharge there for follow-up. Undiagnosed new problem with uncertain prognosis? @ -No Drug Therapy requiring intensive monitoring for toxicity (Heparin, Nitro, Insulin, Cardizem)? @ -No Were any procedures done? @ -No Diagnosis/symptom? @ - abdominal pain, hydronephrosis Acute, or Chronic, or Acute on Chronic? @ -Acute Uncomplicated (without systemic symptoms) or Complicated (systemic symptoms)? @ -Uncomplicated Side effects of treatment? @ -No Exacerbation, Progression, or Severe Exacerbation? @ -No Poses a threat to life or bodily function? How? (Chest pain, USA, MA, pneumonia, PE, COPD, DKA, ARF, appy, cholecystitis, CVA, Diverticulitis, Homicidal, Suicidal, threat to staff... and all critical care pts) @ -No - Lab Data Result diagrams: 03/18/23 06:22 03/18/23 06:22 Lab Results 03/18/23 03/18/23 03/18/23 Range/Units 06:22 06:22 06:22 WBC 10.0 (3.8-10.6) k/uL RBC 4.74 (3.80-5.40) m/uL Hgb 14.2 (11.4-16.0) gm/dL Hct 42.6 (34.0-46.0) % MCV 89.8 (80.0-100.0) fL MCH 29.9 (25.0-35.0) pg MCHC 33.3 (31.0-37.0) g/dL RDW 12.5 (11.5-15.5) % Plt Count 295 (150-450) k/uL MPV 7.4 Neutrophils % 69 % Lymphocytes % 23 % Monocytes % 5 % Eosinophils % 1 % Basophils % 0 % Neutrophils # 6.9 (1.3-7.7) k/uL Lymphocytes # 2.3 (1.0-4.8) k/uL Monocytes # 0.5 (0-1.0) k/uL Eosinophils # 0.1 (0-0.7) k/uL Basophils # 0.0 (0-0.2) k/uL Sodium 138 (137-145) mmol/L Potassium 4.4 (3.5-5.1) mmol/L Chloride 96 L (98-107) mmol/L Carbon Dioxide 27 (22-30) mmol/L Anion Gap 15 mmol/L BUN 9 (7-17) mg/dL Creatinine 0.83 (0.52-1.04) mg/dL Est GFR (CKD-EPI)AfAm >90 (>60 ml/min/1.73 sqM) Est GFR (CKD-EPI)NonAf 78 (>60 ml/min/1.73 sqM) Glucose 150 H (74-99) mg/dL Calcium 10.2 (8.4-10.2) mg/dL Total Bilirubin 0.8 (0.2-1.3) mg/dL AST 34 (14-36) U/L ALT 25 (4-34) U/L Alkaline Phosphatase 63 (38-126) U/L Total Protein 8.6 H (6.3-8.2) g/dL Albumin 4.9 (3.5-5.0) g/dL Lipase 74 (23-300) U/L Urine Color Light Yellow Urine Appearance Clear (Clear) Urine pH 7.5 (5.0-8.0) Ur Specific [place] 1.005 (1.001-1.035) Urine Protein Negative (Negative) Urine Glucose (UA) Negative (Negative) Urine Ketones Negative (Negative) Urine Blood Small H (Negative) Urine Nitrite Negative (Negative) Urine Bilirubin Negative (Negative) Urine Urobilinogen <2.0 (<2.0) mg/dL Ur Leukocyte Esterase Negative (Negative) Urine RBC 2 (0-5) /hpf Urine WBC <1 (0-5) /hpf Ur Squamous Epith Cells <1 (0-4) /hpf Urine Mucus Rare H (None) /hpf Disposition Clinical Impression: Chronic abdominal pain, Constipation, Hydronephrosis, right Disposition: HOME SELF-CARE Condition: Stable Instructions (If sedation given, give patient instructions): Hydronephrosis (ED) Additional Instructions: Please return to the Emergency Department if symptoms worsen or any other concerns. Is patient prescribed a controlled substance at d/c from ED?: No Referrals: Rob Shine DO [Primary Care Provider] - 1-2 days Shiv Tavarez MD [STAFF PHYSICIAN] - 1-2 days Sol Chambers MD [STAFF PHYSICIAN] - 1-2 days Time of Disposition: 09:10
--- NOTE | 2023-03-18 07:53 | US ---
EXAMINATION TYPE: US liver DATE OF EXAM: 03/18/2023 COMPARISON: CT abdomen and pelvis 6 days ago CLINICAL INDICATION: Female, 57 years old with history of pain, hx of cholecystectomy; RUQ pain, naus ea and vomiting for 1 month. cholecystectomy TECHNIQUE: Multiple sonographic images of the right upper quadrant are obtained. FINDINGS: EXAM MEASUREMENTS: Liver Length: 16.9 cm Gallbladder Wall: Surgically absent CBD: 0.7 cm Right Kidney: 10.0 x 5.1 x 4.7 cm TEST ARCHITECT NOTES:*limitations due to large amount of overlying bowel content Pancreas: Tail obscured by overlying bowel gas. visualized portions appear slightly heterogeneous Liver: appears wnl Gallbladder: Surgically absent Evidence for sonographic Toro's sign: no CBD: appears wnl as visualized Right Kidney: dilated renal pelvis Visualized pancreas unremarkable. IVC is seen near the hepatic dome. Visualized liver slightly hetero geneous without worrisome mass or ductal dilatation. Gallbladder is surgically absent. There is new M ild right-sided hydronephrosis. IMPRESSION: New mild right sided hydronephrosis. No definitive renal calculi seen on recent CT. Etiol ogy uncertain.
[2023-03-18 12:02] LABS: Hepatitis A Antibody IgM Nonreactive (Nonreactive); Hepatitis B Core IgM Nonreactive (Nonreactive); Hepatitis B Surface Antigen Nonreactive (Nonreactive); Hepatitis C IgG Antibody Nonreactive (Nonreactive)
== END 2023-03-18 09:40 | disposition home or self-care (01) ==
LOC: EC 05:47
DX: K59.09 Other constipation (principal); N13.30 Unspecified hydronephrosis; I10 Essential (primary) hypertension; E78.5 Hyperlipidemia, unspecified; M19.90 Unspecified osteoarthritis, unspecified site; F41.9 Anxiety disorder, unspecified; F32.A Depression, unspecified; F17.290 Nicotine dependence, other tobacco product, uncomplicated; Z79.899 Other long term (current) drug therapy; Z90.49 Acquired absence of other specified parts of digestive tract
CPT/HCPCS: 36415; 80053; 80074; 83690; 85025; 81001; 74018; 76705; 99284; 96374; 96375 ×2; 96361 ×3; J0780; J1885

== ENCOUNTER → 2023-04-17 | Outpatient (CLI) | payer OTHER ==
--- NOTE | 2023-04-17 10:41 | XR ---
EXAMINATION TYPE: XR abdomen 2V DATE OF EXAM: 04/17/2023 CLINICAL DATA: 57-year-old female R10.9, [facility] COMPARISON: 03/18/2023 FINDINGS: Lung bases are clear. No evidence for free intraperitoneal air. Moderate to large stool burden only mild in the rectum. Cholecystectomy clips. No dilated small bowel or differential air-fluid levels seen. IMPRESSION: Moderate to large stool throughout most of the colon though only mild within the rectum. Query consti pation. Nonobstructive bowel gas pattern. No free air.
== END | disposition home or self-care (01) ==
LOC: RADXRMAIN 09:06
PROVIDERS: ATTEND Nurse Practitioner Family
DX: R10.9 Unspecified abdominal pain (principal)
CPT/HCPCS: 74019

== ENCOUNTER → 2025-05-30 | Outpatient (CLI) | payer OTHER ==
[2025-05-30 15:26] LABS: ALT 26 U/L (8-44); AST 23 U/L (13-35); Albumin 4.4 g/dL (3.8-4.9); Albumin/Globulin Ratio 1.52 Ratio (1.60-3.17); Alkaline Phosphatase 109 U/L (41-126); Anion Gap 12.40 mmol/L (4.00-12.00); BUN/Creat Ratio 19.89 Ratio (12.00-20.00); Blood Urea Nitrogen 17.9 mg/dL (9.0-27.0); Calcium 9.7 mg/dL (8.7-10.3); Carbon Dioxide 24.6 mmol/L (21.6-31.8); Chloride 101 mmol/L (96-109); Globulin 2.9 g/dL (1.6-3.3); Glucose 102 mg/dL (70-110); Potassium 4.8 mmol/L (3.5-5.5); Sodium 138 mmol/L (135-145); Total Protein 7.3 g/dL (6.2-8.2)
[2025-05-30 15:41] LABS: Basophils # (A) 0.04 X 10*3/uL (0.00-0.10); Basophils % (A) 0.5 %; Eosinophils # (A) 0.06 X 10*3/uL (0.04-0.35); Eosinophils % (A) 0.7 %; HCT 36.8 % (37.2-46.3); HGB 11.8 g/dL (12.0-15.0); Immature Grans, Automated 0.70 %; Lymphocytes # (A) 2.57 X 10*3/uL (0.90-5.00); Lymphocytes % (A) 31.9 %; MCH 29.2 pg (27.0-32.0); MCHC 32.1 g/dL (32.0-37.0); MCV 91.1 FL (80.0-97.0); Monocytes # (A) 0.57 X 10*3/uL (0.20-1.00); Monocytes % (A) 7.1 %; NRBC Per 100 WBC 0 X 10*3/uL (0.00-0.01); Neutrophils # (A) 4.76 X 10*3/uL (1.80-7.70); Neutrophils % (A) 59.1 %; Platelet Count 319 X 10*3/uL (140-440); RBC 4.04 X 10*6/uL (4.10-5.20); RDW 13.4 % (11.5-14.5); WBC 8.06 X 10*3/uL (4.50-10.00)
== END | disposition home or self-care (01) ==
LOC: LABWHC1 12:01
PROVIDERS: ATTEND Internal Medicine
DX: J32.0 Chronic maxillary sinusitis (principal)
CPT/HCPCS: 36415; 80053; 85025; 86140